=== PATIENT | female | born 1975 | race Caucasian/White ===

== ENCOUNTER 2018-09-19 11:43 | Outpatient (CLI) | payer BC ==
[~2018-09-19] VITALS: Ht 167.6 cm; Wt 57.2 kg
[2018-09-19] MEDS ORDERED: ARIP10TA10 PO (12:38)
== END 2018-09-19 12:31 | disposition home or self-care (01) ==
LOC: PREOP 11:43
PROVIDERS: ATTEND Surgery
DX: Z01.818 Encounter for other preprocedural examination (principal)

== ENCOUNTER 2018-09-22 09:57 | Day surgery (SDC) | payer BC, OTHER ==
[~2018-09-22] VITALS: Ht 167.6 cm; Wt 57.2 kg
[~2018-09-22 09:57] MED LIST: ARIP10TA10 PO
[2018-09-22] MEDS ORDERED: LACTATED RINGERS 1,000 ML IV PRN (10:11)
--- OUTSIDE RECORDS SUMMARY | 2018-09-22 10:13 | XMS REPORT | Clinical Summary ---
Author Author [facility] Organization [facility] Address Unknown Phone Unavailable Care Team Providers Care Anesthesiology Physician Assistant Name Role Phone PCP Unavailable Allergies Not on File Current Medications Not on file Active Problems Not on file Social History Tobacco Use Types Packs/Day Years Used Date Never Assessed Sex Assigned at Date Recorded Not on file Last Filed Vital Signs Not on file Plan of Treatment Not on file Results Not on filefrom Last 3 Months
--- OUTSIDE RECORDS SUMMARY | 2018-09-22 10:14 | XMS REPORT | CCD ---
Author Author [facility] Organization [facility] Address [address] [place] [address] Phone Care Team Providers Care Senior Staff Specialized Employment Name Role Phone PP Unavailable CCM Unavailable Summary Purpose Interface Exchange Insurance Providers Payer name Policy type / Coverage type Covered democrat ID Effective Begin Date Effective End Date Blue Cross Blue [facility] Blue Cross/Blue Shield [id number] 2017 Unknown Family history Mother Diagnosis Age At Onset Hypertension Unknown Father Diagnosis Age At Onset Hypertension Unknown Social History Social History Element Codes Description Effective Dates Marital status Unknown Jeff 09/01/2015 Number of children Unknown 0 09/01/[address]: 728790188 Never smoker 09/01/[address]: 523608434 Never drinks alcohol 09/01/2015 Allergies, Adverse Reactions, Alerts Substance Reaction Codes Entered Date Inactivated Date Status * NO KNOWN DRUG ALLERGIES Unknown 09/01/2015 No Inactive Date Active Past Medical History Illness Codes Condition Status Onset Date Resolved Date Melena ICD-9: 578.1 ICD-10: K92.1 Active 09/11/2018 Unknown Other hemorrhoids ICD- 9: 455.2 ICD-10: K64.8 Active 09/11/2018 Unknown Secondary oligomenorrhea ICD-9: 626.1 ICD-10: N91.4 Active 06/25/2018 Unknown Other insomnia ICD-9: 327.09 ICD-10: G47.09 Active 03/22/2016 Unknown Abnormal weight loss ICD-9: 783.21 ICD-10: R63.4 Active 03/10/2018 Unknown Left lower quadrant pain ICD-9: 789.04 ICD-10: R10.32 Active 07/18/2016 Unknown 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 Active 07/18/2016 Unknown Encounter for general adult medical examination without abnormal findings ICD-9: V70.0 ICD-10: Z00.00 Active 08/31/2015 Unknown Problems Condition Codes Effective Dates Condition Status Melena ICD-9: 578.1 ICD-10: K92.1 09/11/2018 Active Other hemorrhoids ICD- 9: 455.2 ICD-10: K64.8 09/11/2018 Active Secondary oligomenorrhea ICD-9: 626.1 ICD-10: N91.4 06/25/2018 Active Other insomnia ICD-9: 327.09 ICD-10: G47.09 03/22/2016 Active Abnormal weight loss ICD-9: 783.21 ICD-10: R63.4 03/10/2018 Active Left lower quadrant pain ICD-9: 789.04 ICD-10: R10.32 07/18/2016 Active 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 07/18/2016 Active Encounter for general adult medical examination without abnormal findings ICD-9: V70.0 ICD-10: Z00.00 08/31/2015 Active Medications Medication Codes Instructions Start Date Stop Date Status Fill Instructions Anusol-HC 25 mg rectal suppository RxNorm: 3218280 1 Suppository RTL 09/11/2018 No Stop Date Active BID x 3 days, then daily x 3 days then as needed Restoril 15 mg capsule RxNorm: 756156 2 Capsule(s) PO QHS 04/18 No Stop Date Active Restoril 15 mg capsule RxNorm: 229081 1 Capsule(s) PO QHS 04/1704/17/2018 Inactive Xanax 1 mg tablet RxNorm: 420580 1 Tablet(s) PO QHS as needed insomnia 04/09/2018 04/16/2018 Inactive Remeron 30 mg tablet RxNorm: 463620 1 Tablet(s) PO QHS 201704/16/2018 Inactive Remeron 15 mg tablet RxNorm: 233493 1 Tablet(s) PO QHS 201703/31/2018 Inactive Anusol-HC 2.5 % topical cream with perineal applicator RxNorm: 5905142 1 Application TOP BID x3 days, then daily x2 days, then as needed 03/18/2018 No Stop Date Active Xanax 1 mg tablet RxNorm: 920007 1 Tablet(s) PO QHS as needed insomnia 03/10/2018 04/08/2018 Inactive alprazolam 0.5 mg tablet RxNorm: 818002 1 Tablet(s) PO QHS as needed insomnia 08/29/2017 02/26/2018 Inactive alprazolam 0.5 mg tablet RxNorm: 171660 1 Tablet(s) PO QHS as needed insomnia 12/07/2016 02/03/2017 Inactive metronidazole 500 mg tablet RxNorm: 639709 1 Tablet(s) PO TID 07/19/2016 07/23/2016 Inactive alprazolam 0.5 mg tablet RxNorm: 492222 1 Tablet(s) PO QHS as needed insomnia 04/23/2016 05/22/2016 Inactive Fish Oil 360 mg-1,200 mg capsule RxNorm: 870736 1 Capsule(s) PO BID No Start Date Active Abilify 10 mg tablet RxNorm: 379146 1 Tablet(s) PO daily No Start Date Active Anusol-HC 2.5 % topical cream with perineal applicator RxNorm: 3172108 1 Application TOP BID x3 days, then daily x2 days, then as needed No Start Date 03/17/2018 Inactive Medication Administered No Medication Administered data Immunizations Vaccine Codes Date Status Influenza CVX: 141 08/21/2018 completed Influenza CVX: 141 08/15/2017 completed Assessments Condition Codes Effective Dates Melena ICD-10: K92.1 ICD-9: 578.1 09/11/2018 Other hemorrhoids ICD-10: K64.8 ICD-9: 455.2 09/11/2018 Secondary oligomenorrhea ICD-10: N91.4 ICD-9: 626.1 06/25/2018 Other insomnia ICD-10: G47.09 ICD-9: 327.09 04/17/2018 Abnormal weight loss ICD-10: R63.4 ICD-9: 783.21 03/24/2018 Toxic gastroenteritis and colitis ICD-10: K52.1 ICD-9: 558.2 07/19/2016 Left lower quadrant pain ICD-10: R10.32 ICD-9: 789.04 07/19/2016 Encounter for general adult medical examination without abnormal findings ICD-10: Z00.00 ICD-9: V70.0 09/01/2015 Reason For Visit Reason For Visit Effective Dates Notes hemorrhoids 09/11/2018 menstrual irregularity 06/25/2018 insomnia 04/17/2018 insomnia 03/24/2018 insomnia 03/10/2018 medication follow up 08/29/2017 diarrhea 07/19/2016 insomnia 03/23/2016 Results Observation Observation Code Item Item Code Result Date Cbc With Differential Ord2 WBC 10.43 K/ul 09/12/2018 Cbc With Differential Ord2 RBC 4.73 M/ul 09/12/2018 Cbc With Differential Ord2 HGB 14.3 g/dl 09/12/2018 Cbc With Differential Ord2 HCT 42.6 % 09/12/2018 Cbc With Differential Ord2 Neut% 67.8 % 09/12/2018 Cbc With Differential Ord2 MCV 90.1 fl 09/12/2018 Cbc With Differential Ord2 Lymph% 25.7 % 09/12/2018 Cbc With Differential Ord2 MCH 30.2 pg 09/12/2018 Cbc With Differential Ord2 [place]% 4.7 % 09/12/2018 Cbc With Differential Ord2 MCHC 33.6 pg 09/12/2018 Cbc With Differential Ord2 Eos% 1.2 % 09/12/2018 Cbc With Differential Ord2 Baso% 0.6 % 09/12/2018 Cbc With Differential Ord2 PLT 291 K/ul 09/12/2018 Cbc With Differential Ord2 Neut ABS# 7.08 K/ul 09/12/2018 Cbc With Differential Ord2 RDW 12.7 % 09/12/2018 Cbc With Differential Ord2 Lymph ABS# 2.68 K/ul 09/12/2018 Cbc With Differential Ord2 [place] ABS# 0.5 K/ul 09/12/2018 Cbc With Differential Ord2 Eos ABS# 0.1 K/ul 09/12/2018 Cbc With Differential Ord2 Baso ABS# 0.1 K/ul 09/12/2018 Estrogens Total 418800 ESTROGENS, TOTAL 215 pg/mL 06/30/2018 Tsh Ord6 TSH (3rd IS) 2.49 uIU/mL 06/25/2018 Lh Ord19 LH 10.72 mIU/mL 06/25/2018 Comp Metabolic Ihu418 NA 139 mEq/L 06/25/2018 Comp Metabolic Dbr897 K 4.3 mEq/L 06/25/2018 Comp Metabolic Gkt157 CL 105 mEq/L 06/25/2018 Comp Metabolic Bgh204 CO2 27.0 mEq/L 06/25/2018 Comp Metabolic Vug289 ANION GAP 11 06/25/2018 Comp Metabolic Eha931 GLUCOSE 88 mg/dL 06/25/2018 Comp Metabolic Alr259 Creat 0.7 mg/dL 06/25/2018 Comp Metabolic Ytm546 eGFR 105 ml/min/1.73m2 06/25/2018 Comp Metabolic Zcl848 BUN 14 mg/dL 06/25/2018 Comp Metabolic Eip456 B/C Ratio 21.5 Ratio 06/25/2018 Comp Metabolic Txl611 CALCIUM 9.5 mg/dL 06/25/2018 Comp Metabolic Yuw288 ALK PHOS 57 U/L 06/25/2018 Comp Metabolic Unn146 AST(SGOT) 13 U/L 06/25/2018 Comp Metabolic Ocz339 ALT(SGPT) 15 U/L 06/25/2018 Comp Metabolic Mso719 BILI T 0.4 mg/dL 06/25/2018 Comp Metabolic Ykl876 ALBUMIN 4.6 g/dL 06/25/2018 Comp Metabolic Dqu394 TPRO 7.4 g/dL 06/25/2018 Comp Metabolic Uzl415 GLOB 2.9 g/dL 06/25/2018 Comp Metabolic Hde291 A/G Ratio 1.6 Ratio 06/25/2018 Comp Metabolic Kll942 Osmo 277 mOsmo 06/25/2018 Cbc With Differential Ord2 WBC 11.75 K/ul 06/25/2018 Cbc With Differential Ord2 RBC 4.58 M/ul 06/25/2018 Cbc With Differential Ord2 HGB 13.7 g/dl 06/25/2018 Cbc With Differential Ord2 Neut% 73.3 % 06/25/2018 Cbc With Differential Ord2 HCT 41.3 % 06/25/2018 Cbc With Differential Ord2 MCV 90.2 fl 06/25/2018 Cbc With Differential Ord2 Lymph% 20.3 % 06/25/2018 Cbc With Differential Ord2 MCH 29.9 pg 06/25/2018 Cbc With Differential Ord2 [place]% 4.9 % 06/25/2018 Cbc With Differential Ord2 MCHC 33.2 pg 06/25/2018 Cbc With Differential Ord2 Eos% 1.1 % 06/25/2018 Cbc With Differential Ord2 PLT 320 K/ul 06/25/2018 Cbc With Differential Ord2 Baso% 0.4 % 06/25/2018 Cbc With Differential Ord2 RDW 13.0 % 06/25/2018 Cbc With Differential Ord2 Neut ABS# 8.61 K/ul 06/25/2018 Cbc With Differential Ord2 Lymph ABS# 2.39 K/ul 06/25/2018 Cbc With Differential Ord2 [place] ABS# 0.6 K/ul 06/25/2018 Cbc With Differential Ord2 Eos ABS# 0.1 K/ul 06/25/2018 Cbc With Differential Ord2 Baso ABS# 0.1 K/ul 06/25/2018 Fsh Ord18 FSH 6.30 mlU/ml 06/25/2018 Progesterone Pna710 Prog 6.73 ng/mL 06/25/2018 Tsh Ord6 hTSH II 2.04 uIU/mL 09/02/2015 Lipid Ord30 CHOL 209 mg/dL 09/02/2015 Lipid Ord30 HDL 37.0 mg/dl 09/02/2015 Lipid Ord30 TRIG 278 mg/dL 09/02/2015 Lipid Ord30 LDL 116 mg/dL 09/02/2015 Lipid Ord30 C/HDL 5.6 Ratio 09/02/2015 Comp Metabolic Ech638 NA 137 mEq/L 09/02/2015 Comp Metabolic Ymr550 K 3.8 mEq/L 09/02/2015 Comp Metabolic Bcm797 CL 103 mEq/L 09/02/2015 Comp Metabolic Yqy716 CO2 27.0 mEq/L 09/02/2015 Comp Metabolic Gts051 ANION GAP 11 09/02/2015 Comp Metabolic Tld388 GLUCOSE 97 mg/dL 09/02/2015 Comp Metabolic Ntc019 Creat 0.8 mg/dL 09/02/2015 Comp Metabolic Iqr962 eGFR 90 ml/min/1.73m2 09/02/2015 Comp Metabolic Xrm990 BUN 13 mg/dL 09/02/2015 Comp Metabolic Jkc307 B/C Ratio 17.3 Ratio 09/02/2015 Comp Metabolic Lcp829 CALCIUM 9.7 mg/dL 09/02/2015 Comp Metabolic Mhp745 ALK PHOS 69 U/L 09/02/2015 Comp Metabolic Bhs572 AST(SGOT) 19 U/L 09/02/2015 Comp Metabolic Srb087 ALT(SGPT) 34 U/L 09/02/2015 Comp Metabolic Cql276 BILI T 0.8 mg/dL 09/02/2015 Comp Metabolic Gob894 ALBUMIN 4.6 g/dL 09/02/2015 Comp Metabolic Mha247 TPRO 7.4 g/dL 09/02/2015 Comp Metabolic Quv251 GLOB 2.8 g/dL 09/02/2015 Comp Metabolic Agg586 A/G Ratio 1.7 Ratio 09/02/2015 Comp Metabolic Mvy999 Osmo 274 mOsmo 09/02/2015 %Hba1C Zhw092 % HbA1c 27755-7 5.3 % 09/02/2015 %Hba1C Svg901 Gluc Ave 105 mg/dL 09/02/2015 Cbc With Differential Ord2 WBC 9.1 K/uL 09/02/2015 Cbc With Differential Ord2 LYM 2.5 K/uL 09/02/2015 Cbc With Differential Ord2 LYM% 27.7 % 09/02/2015 Cbc With Differential Ord2 NEUT/GRAN 6.2 K/uL 09/02/2015 Cbc With Differential Ord2 NEUT/GRAN % 68.0 % 09/02/2015 Cbc With Differential Ord2 MID 0.4 K/uL 09/02/2015 Cbc With Differential Ord2 MID% 4.3 % 09/02/2015 Cbc With Differential Ord2 RBC 4.69 M/uL 09/02/2015 Cbc With Differential Ord2 HGB 13.8 g/dL 09/02/2015 Cbc With Differential Ord2 HCT 43.2 % 09/02/2015 Cbc With Differential Ord2 MCV 92 fL 09/02/2015 Cbc With Differential Ord2 MCH 29 pg 09/02/2015 Cbc With Differential Ord2 MCHC 32 g/dL 09/02/2015 Cbc With Differential Ord2 PLT 321 K/uL 09/02/2015 Cbc With Differential Ord2 RDW 13.5 % 09/02/2015 Review of Systems System Result Effective Dates Constitutional No recent illness 2017 Constitutional No chills 09/11/2018 Constitutional No diaphoresis 09/11/2018 Constitutional No fever 09/11/2018 Eyes No eye erythema 09/11/2018 Ears/Nose/Throat/Neck No nasal discharge 09/11/2018 Cardiovascular No chest pain/pressure 11/2017 Respiratory No cough 09/11/2018 Gastrointestinal No abdominal pain 2017 Gastrointestinal constipation 09/11/2018 Gastrointestinal No diarrhea 09/11/2018 Gastrointestinal No vomiting 09/11/2018 Gastrointestinal No nausea 09/11/2018 Gastrointestinal No melena 09/11/2018 Gastrointestinal hematochezia 09/11/2018 Genitourinary/Nephrology No dysuria 09/11 Dermatologic No rash 09/11/2018 Neurologic No alteration of consciousness 09/11/2018 Neurologic No mental status change 2017 Constitutional No recent illness 2017 Constitutional fatigue 04/17/2018 Constitutional insomnia 04/17/2018 Constitutional malaise 04/17/2018 Cardiovascular No chest pain/pressure 05/2018 Respiratory No cough 04/17/2018 Respiratory No chest tightness 2017 Gastrointestinal No abdominal pain 2017 Psychiatric No anxiety 04/17/2018 Psychiatric No depression 04/17/2018 Constitutional No recent illness 2017 Constitutional No chills 03/24/2018 Constitutional No diaphoresis 03/24/2018 Constitutional No fever 03/24/2018 Constitutional insomnia 03/24/2018 Constitutional No malaise 03/24/2018 Constitutional weight loss 03/24/2018 Eyes No eye erythema 03/24/2018 Eyes No vision change 03/24/2018 Ears/Nose/Throat/Neck No nasal allergies 03/24/2018 Ears/Nose/Throat/Neck No nasal discharge 03/24/2018 Ears/Nose/Throat/Neck No sinus congestion 03/24/2018 Cardiovascular No chest pain/pressure Cardiovascular No dyspnea 03/24/2018 Respiratory No chest congestion 2017 Respiratory No cough 03/24/2018 Respiratory No dyspnea 03/24/2018 Gastrointestinal No constipation 2017 Gastrointestinal No diarrhea 03/24/2018 Gastrointestinal No nausea 03/24/2018 Gastrointestinal No vomiting 03/24/2018 Genitourinary/Nephrology No dysuria 03/24 Musculoskeletal No joint complaint 2017 Dermatologic No rash 03/24/2018 Neurologic No alteration of consciousness 03/24/2018 Neurologic No mental status change 2017 Constitutional No recent illness 2017 Constitutional No chills 03/10/2018 Constitutional No diaphoresis 03/10/2018 Constitutional No fever 03/10/2018 Constitutional insomnia 03/10/2018 Constitutional No malaise 03/10/2018 Eyes No eye erythema 03/10/2018 Eyes No vision change 03/10/2018 Ears/Nose/Throat/Neck No nasal allergies 03/10/2018 Ears/Nose/Throat/Neck No nasal discharge 03/10/2018 Ears/Nose/Throat/Neck No sinus congestion 03/10/2018 Cardiovascular No chest pain/pressure Cardiovascular No dyspnea 03/10/2018 Respiratory No chest congestion 2017 Respiratory No cough 03/10/2018 Respiratory No dyspnea 03/10/2018 Gastrointestinal No constipation 2017 Gastrointestinal No diarrhea 03/10/2018 Gastrointestinal No nausea 03/10/2018 Gastrointestinal No vomiting 03/10/2018 Genitourinary/Nephrology No dysuria 03/10 Musculoskeletal No joint complaint 2017 Dermatologic No rash 03/10/2018 Neurologic No alteration of consciousness 03/10/2018 Neurologic No mental status change 2017 Constitutional weight loss 03/10/2018 Constitutional No recent illness 2016 Constitutional No chills 08/29/2017 Constitutional No fever 08/29/2017 Constitutional insomnia 08/29/2017 Constitutional No malaise 08/29/2017 Eyes No eye erythema 08/29/2017 Eyes No vision change 08/29/2017 Ears/Nose/Throat/Neck No nasal allergies 08/29/2017 Ears/Nose/Throat/Neck No nasal discharge 08/29/2017 Ears/Nose/Throat/Neck No sinus congestion 08/29/2017 Cardiovascular No chest pain/pressure Cardiovascular No dyspnea 08/29/2017 Respiratory No chest congestion 2016 Respiratory No cough 08/29/2017 Respiratory No dyspnea 08/29/2017 Gastrointestinal No constipation 2016 Gastrointestinal No diarrhea 08/29/2017 Gastrointestinal No nausea 08/29/2017 Gastrointestinal No vomiting 08/29/2017 Genitourinary/Nephrology No dysuria 08/29 Musculoskeletal No joint complaint 2016 Dermatologic No rash 08/29/2017 Neurologic No alteration of consciousness 08/29/2017 Constitutional No diaphoresis 08/29/2017 Neurologic No mental status change 2016 Constitutional recent illness 07/19/2016 Constitutional No chills 07/19/2016 Constitutional fatigue 07/19/2016 Constitutional No fever 07/19/2016 Constitutional No insomnia 07/19/2016 Constitutional No malaise 07/19/2016 Eyes No blindness 07/19/2016 Eyes No vision change 07/19/2016 Cardiovascular No chest pain/pressure 06/2016 Cardiovascular No dyspnea 07/19/2016 Cardiovascular No edema 07/19/2016 Cardiovascular No exercise intolerance Cardiovascular No fatigue 07/19/2016 Cardiovascular No near-syncope/dizziness 07/19/2016 Respiratory No chest tightness 2015 Respiratory No cough 07/19/2016 Respiratory No dyspnea 07/19/2016 Respiratory No pedal edema 07/19/2016 Gastrointestinal No abdominal pain 2015 Gastrointestinal diarrhea 07/19/2016 Gastrointestinal No gastroesophageal reflux 07/19/2016 Gastrointestinal No nausea 07/19/2016 Gastrointestinal No vomiting 07/19/2016 Genitourinary/Nephrology No dysuria 07/19 Genitourinary/Nephrology No nocturia 06/2016 Genitourinary/Nephrology No urinary incontinence 07/19/2016 Dermatologic No rash 07/19/2016 Dermatologic No sores 07/19/2016 Dermatologic No scar 07/19/2016 Psychiatric No anxiety 07/19/2016 Psychiatric No depression 07/19/2016 Constitutional No recent illness 2015 Constitutional No chills 03/23/2016 Constitutional No fatigue 03/23/2016 Constitutional No fever 03/23/2016 Constitutional No insomnia 03/23/2016 Constitutional No malaise 03/23/2016 Eyes No eye erythema 03/23/2016 Eyes No vision change 03/23/2016 Ears/Nose/Throat/Neck No nasal allergies 03/23/2016 Ears/Nose/Throat/Neck No sinus congestion 03/23/2016 Cardiovascular No chest pain/pressure Cardiovascular No dyspnea 03/23/2016 Cardiovascular No edema 03/23/2016 Respiratory No cough 03/23/2016 Respiratory No dyspnea 03/23/2016 Gastrointestinal No constipation 2015 Gastrointestinal No diarrhea 03/23/2016 Gastrointestinal No nausea 03/23/2016 Gastrointestinal No vomiting 03/23/2016 Genitourinary/Nephrology No dysuria 03/23 Dermatologic No rash 03/23/2016 Dermatologic No sores 03/23/2016 Dermatologic No scar 03/23/2016 Neurologic No neck pain 03/23/2016 Neurologic No syncope 03/23/2016 Psychiatric No anxiety 03/23/2016 Psychiatric No depression 03/23/2016 Ears/Nose/Throat/Neck No nasal discharge 03/23/2016 Respiratory No chest congestion 2015 Musculoskeletal No joint complaint 2015 Neurologic No alteration of consciousness 03/23/2016 Constitutional No recent illness 2014 Constitutional No chills 09/01/2015 Constitutional No fatigue 09/01/2015 Constitutional No fever 09/01/2015 Constitutional No insomnia 09/01/2015 Constitutional No malaise 09/01/2015 Eyes No blindness 09/01/2015 Eyes No vision change 09/01/2015 Ears/Nose/Throat/Neck No dental pain Ears/Nose/Throat/Neck No dizziness 2014 Ears/Nose/Throat/Neck No dysphagia 2014 Ears/Nose/Throat/Neck No headache 2014 Ears/Nose/Throat/Neck No hearing loss Ears/Nose/Throat/Neck No nasal allergies 09/01/2015 Ears/Nose/Throat/Neck No sore throat Ears/Nose/Throat/Neck No postnasal drip 09/01/2015 Ears/Nose/Throat/Neck No sinus congestion 09/01/2015 Cardiovascular No chest pain/pressure Cardiovascular No dyspnea 09/01/2015 Cardiovascular No edema 09/01/2015 Cardiovascular No exercise intolerance Cardiovascular No fatigue 09/01/2015 Cardiovascular No near-syncope/dizziness 09/01/2015 Respiratory No chest tightness 2014 Respiratory No cough 09/01/2015 Respiratory No dyspnea 09/01/2015 Respiratory No pedal edema 09/01/2015 Gastrointestinal No abdominal pain 2014 Gastrointestinal No constipation 2014 Gastrointestinal No diarrhea 09/01/2015 Gastrointestinal No gastroesophageal reflux 09/01/2015 Gastrointestinal No nausea 09/01/2015 Gastrointestinal No vomiting 09/01/2015 Genitourinary/Nephrology No dysuria 09/01 Genitourinary/Nephrology No nocturia Genitourinary/Nephrology No urinary incontinence 09/01/2015 Musculoskeletal No stiffness 09/01/2015 Musculoskeletal No swelling 09/01/2015 Musculoskeletal No muscle weakness 2014 Musculoskeletal No myalgias 09/01/2015 Dermatologic No rash 09/01/2015 Dermatologic No sores 09/01/2015 Dermatologic No scar 09/01/2015 Neurologic No dizziness 09/01/2015 Neurologic No headache 09/01/2015 Neurologic No neck pain 09/01/2015 Neurologic No syncope 09/01/2015 Psychiatric No anxiety 09/01/2015 Psychiatric No depression 09/01/2015 Physical Exam Exam Name System Name Item Name Status Result Effective Dates Notes Full Exam - General 1994 Constitutional general appearance Overall: well developed 09/11/2018 None Full Exam - General 1994 Constitutional general appearance Overall: in no acute distress 09/11/2018 None Full Exam - General 1994 Constitutional general appearance Overall: well nourished 09/11/2018 None Full Exam - General 1994 Eyes conjunctiva /eyelids Overall: conjunctiva clear 09/11/2018 None Full Exam - General 1994 Eyes conjunctiva /eyelids Overall: cornea clear 09/11/2018 None Full Exam - General 1994 Eyes conjunctiva /eyelids Overall: eyelids normal 09/11/2018 None Full Exam - General 1994 Ears/Nose/Throat lips/teeth/gingiva Overall: benign lips 09/11/2018 None Full Exam - General 1994 Ears/Nose/Throat oral cavity/pharynx/larynx Overall: oral mucosa clear 09/11/2018 None Full Exam - General 1994 Respiratory auscultation Overall: breath sounds clear bilaterally 09/11/2018 None Full Exam - General 1994 Respiratory respiratory effort/rhythm Overall: normal rate 09/11/2018 None Full Exam - General 1994 Respiratory respiratory effort/rhythm Overall: no retractions 09/11/2018 None Full Exam - General 1994 Cardiovascular auscultation of heart Overall: normal heart sounds 09/11/2018 None Full Exam - General 1994 Cardiovascular auscultation of heart Overall: regular rate 09/11/2018 None Full Exam - General 1994 Abdomen abdominal exam Overall: normal bowel sounds 09/11/2018 None Full Exam - General 1994 Abdomen abdominal exam Overall: no tenderness 09/11/2018 None Full Exam - General 1994 Musculoskeletal head and neck Overall: head atraumatic 09/11/2018 None Full Exam - General 1994 Musculoskeletal gait and station Overall: normal station 09/11/2018 None Full Exam - General 1994 Musculoskeletal gait and station Overall: normal gait 09/11/2018 None Full Exam - General 1994 Abdomen rectal exam Inspection: hemorrhoid 09/11/2018 None Full Exam - General 1994 Neurologic cranial nerves Overall: crainial nerves 2 - 12 grossly intact 09/11/2018 None Full Exam - General 1994 Psychiatric orientation/consciousness Overall: oriented to person, place and time 09/11/2018 None Full Exam - General 1994 Psychiatric mood and affect Overall: normal mood and affect 09/11/2018 None Full Exam - General 1994 Psychiatric appearance Overall: well-groomed, good eye contact 09/11/2018 None Full Exam - General 1994 Constitutional general appearance Overall: well nourished 04/17/2018 None Full Exam - General 1994 Constitutional general appearance Overall: well developed 04/17/2018 None Full Exam - General 1994 Constitutional general appearance Overall: in no acute distress 04/17/2018 None Full Exam - General 1994 Psychiatric orientation/consciousness Overall: oriented to person, place and time 04/17/2018 None Full Exam - General 1994 Psychiatric mood and affect Mood: happy 04/17/2018 None Full Exam - General 1994 Psychiatric mood and affect Overall: normal mood and affect 04/17/2018 None Full Exam - General 1994 Cardiovascular auscultation of heart Overall: regular rate 04/17/2018 None Full Exam - General 1994 Cardiovascular auscultation of heart Overall: normal heart sounds 04/17/2018 None Full Exam - General 1994 Cardiovascular auscultation of heart Overall: no murmurs 04/17/2018 None Full Exam - General 1994 Respiratory auscultation Overall: breath sounds clear bilaterally 04/17/2018 None Full Exam - General 1994 Constitutional general appearance Overall: well developed 03/24/2018 None Full Exam - General 1994 Constitutional general appearance Overall: in no acute distress 03/24/2018 None Full Exam - General 1994 Constitutional general appearance Overall: well nourished 03/24/2018 None Full Exam - General 1994 Constitutional general appearance Hygiene/Attention to Grooming: good hygiene 03/24/2018 None Full Exam - General 1994 Eyes conjunctiva /eyelids Overall: eyelids normal 03/24/2018 None Full Exam - General 1994 Eyes pupils and irises Overall: pupils equal, round, reactive to light and accomodation 03/24/2018 None Full Exam - General 1994 Ears/Nose/Throat lips/teeth/gingiva Overall: benign lips 03/24/2018 None Full Exam - General 1994 Ears/Nose/Throat oral cavity/pharynx/larynx Overall: oral mucosa clear 03/24/2018 None Full Exam - General 1994 Respiratory auscultation Overall: breath sounds clear bilaterally 03/24/2018 None Full Exam - General 1994 Respiratory respiratory effort/rhythm Overall: no retractions 03/24/2018 None Full Exam - General 1994 Respiratory respiratory effort/rhythm Overall: normal rate 03/24/2018 None Full Exam - General 1994 Cardiovascular extremities Overall: no clubbing 03/24/2018 None Full Exam - General 1994 Cardiovascular auscultation of heart Overall: regular rate 03/24/2018 None Full Exam - General 1994 Cardiovascular auscultation of heart Overall: normal heart sounds 03/24/2018 None Full Exam - General 1994 Musculoskeletal spine, ribs and pelvis Overall: good posture 03/24/2018 None Full Exam - General 1994 Musculoskeletal gait and station Overall: normal gait 03/24/2018 None Full Exam - General 1994 Musculoskeletal gait and station Overall: normal station 03/24/2018 None Full Exam - General 1994 Musculoskeletal head and neck Overall: head atraumatic 03/24/2018 None Full Exam - General 1994 Neurologic gait Overall: no ataxia, no unsteadiness 03/24/2018 None Full Exam - General 1994 Neurologic cranial nerves Overall: crainial nerves 2 - 12 grossly intact 03/24/2018 None Full Exam - General 1994 Psychiatric orientation/consciousness Overall: oriented to person, place and time 03/24/2018 None Full Exam - General 1994 Psychiatric mood and affect Overall: normal mood and affect 03/24/2018 None Full Exam - General 1994 Psychiatric mood and affect Mood: flat 03/24/2018 None Full Exam - General 1994 Psychiatric appearance Overall: well-groomed, good eye contact 03/24/2018 None Full Exam - General 1994 Constitutional general appearance Overall: well developed 03/10/2018 None Full Exam - General 1994 Constitutional general appearance Overall: in no acute distress 03/10/2018 None Full Exam - General 1994 Constitutional general appearance Overall: well nourished 03/10/2018 None Full Exam - General 1994 Constitutional general appearance Hygiene/Attention to Grooming: good hygiene 03/10/2018 None Full Exam - General 1994 Eyes conjunctiva /eyelids Overall: conjunctiva clear 03/10/2018 None Full Exam - General 1994 Eyes conjunctiva /eyelids Overall: eyelids normal 03/10/2018 None Full Exam - General 1994 Eyes pupils and irises Overall: pupils equal, round, reactive to light and accomodation 03/10/2018 None Full Exam - General 1994 Ears/Nose/Throat lips/teeth/gingiva Overall: benign lips 03/10/2018 None Full Exam - General 1994 Ears/Nose/Throat oral cavity/pharynx/larynx Overall: oral mucosa clear 03/10/2018 None Full Exam - General 1994 Respiratory auscultation Overall: breath sounds clear bilaterally 03/10/2018 None Full Exam - General 1994 Respiratory respiratory effort/rhythm Overall: no retractions 03/10/2018 None Full Exam - General 1994 Respiratory respiratory effort/rhythm Overall: normal rate 03/10/2018 None Full Exam - General 1994 Cardiovascular extremities Overall: no clubbing 03/10/2018 None Full Exam - General 1994 Cardiovascular auscultation of heart Overall: regular rate 03/10/2018 None Full Exam - General 1994 Cardiovascular auscultation of heart Overall: normal heart sounds 03/10/2018 None Full Exam - General 1994 Musculoskeletal spine, ribs and pelvis Overall: good posture 03/10/2018 None Full Exam - General 1994 Musculoskeletal gait and station Overall: normal gait 03/10/2018 None Full Exam - General 1994 Musculoskeletal gait and station Overall: normal station 03/10/2018 None Full Exam - General 1994 Musculoskeletal head and neck Overall: head atraumatic 03/10/2018 None Full Exam - General 1994 Neurologic gait Overall: no ataxia, no unsteadiness 03/10/2018 None Full Exam - General 1994 Neurologic cranial nerves Overall: crainial nerves 2 - 12 grossly intact 03/10/2018 None Full Exam - General 1994 Psychiatric orientation/consciousness Overall: oriented to person, place and time 03/10/2018 None Full Exam - General 1994 Psychiatric mood and affect Overall: normal mood and affect 03/10/2018 None Full Exam - General 1994 Psychiatric mood and affect Mood: flat 03/10/2018 None Full Exam - General 1994 Psychiatric appearance Overall: well-groomed, good eye contact 03/10/2018 None Full Exam - General 1994 Constitutional general appearance Hygiene/Attention to Grooming: good hygiene 08/29/2017 None Full Exam - General 1994 Eyes conjunctiva /eyelids Overall: conjunctiva clear 08/29/2017 None Full Exam - General 1994 Eyes conjunctiva /eyelids Overall: eyelids normal 08/29/2017 None Full Exam - General 1994 Ears/Nose/Throat lips/teeth/gingiva Overall: benign lips 08/29/2017 None Full Exam - General 1994 Respiratory auscultation Overall: breath sounds clear bilaterally 08/29/2017 None Full Exam - General 1994 Respiratory respiratory effort/rhythm Overall: no retractions 08/29/2017 None Full Exam - General 1994 Respiratory respiratory effort/rhythm Overall: normal rate 08/29/2017 None Full Exam - General 1994 Cardiovascular extremities Overall: no clubbing 08/29/2017 None Full Exam - General 1994 Cardiovascular auscultation of heart Overall: regular rate 08/29/2017 None Full Exam - General 1994 Cardiovascular auscultation of heart Overall: normal heart sounds 08/29/2017 None Full Exam - General 1994 Musculoskeletal spine, ribs and pelvis Overall: good posture 08/29/2017 None Full Exam - General 1994 Musculoskeletal head and neck Overall: head atraumatic 08/29/2017 None Full Exam - General 1994 Neurologic cranial nerves Overall: crainial nerves 2 - 12 grossly intact 08/29/2017 None Full Exam - General 1994 Psychiatric orientation/consciousness Overall: oriented to person, place and time 08/29/2017 None Full Exam - General 1994 Psychiatric mood and affect Overall: normal mood and affect 08/29/2017 None Full Exam - General 1994 Psychiatric mood and affect Mood: flat 08/29/2017 None Full Exam - General 1994 Constitutional general appearance Overall: well developed 08/29/2017 None Full Exam - General 1994 Constitutional general appearance Overall: in no acute distress 08/29/2017 None Full Exam - General 1994 Constitutional general appearance Overall: well nourished 08/29/2017 None Full Exam - General 1994 Eyes pupils and irises Overall: pupils equal, round, reactive to light and accomodation 08/29/2017 None Full Exam - General 1994 Ears/Nose/Throat oral cavity/pharynx/larynx Overall: oral mucosa clear 08/29/2017 None Full Exam - General 1994 Ears/Nose/Throat otoscopic exam Overall: external auditory canals clear 08/29/2017 None Full Exam - General 1994 Ears/Nose/Throat otoscopic exam Overall: tympanic membranes clear 08/29/2017 None Full Exam - General 1994 Abdomen abdominal exam Overall: no tenderness 08/29/2017 None Full Exam - General 1994 Abdomen abdominal exam Overall: normal bowel sounds 08/29/2017 None Full Exam - General 1994 Musculoskeletal gait and station Overall: normal station 08/29/2017 None Full Exam - General 1994 Musculoskeletal gait and station Overall: normal gait 08/29/2017 None Full Exam - General 1994 Neurologic gait Overall: no ataxia, no unsteadiness 08/29/2017 None Full Exam - General 1994 Psychiatric appearance Overall: well-groomed, good eye contact 08/29/2017 None Full Exam - General 1994 Constitutional general appearance Development: well developed 07/19/2016 None Full Exam - General 1994 Constitutional general appearance Development: appears stated age 0907/19/2016 None Full Exam - General 1994 Constitutional general appearance Hygiene/Attention to Grooming: good hygiene 07/19/2016 None Full Exam - General 1994 Eyes pupils and irises Overall: pupils equal, round, reactive to light and accomodation 07/19/2016 None Full Exam - General 1994 Ears/Nose/Throat otoscopic exam Overall: external auditory canals clear 07/19/2016 None Full Exam - General 1994 Ears/Nose/Throat otoscopic exam Overall: tympanic membranes clear 07/19/2016 None Full Exam - General 1994 Ears/Nose/Throat lips/teeth/gingiva Overall: benign lips 07/19/2016 None Full Exam - General 1994 Ears/Nose/Throat lips/teeth/gingiva Overall: normal dentition 07/19/2016 None Full Exam - General 1994 Ears/Nose/Throat oral cavity/pharynx/larynx Overall: oral mucosa clear 07/19/2016 None Full Exam - General 1994 Ears/Nose/Throat oral cavity/pharynx/larynx Overall: oropharyngeal mucosa clear 07/19/2016 None Full Exam - General 1994 Ears/Nose/Throat oral cavity/pharynx/larynx Overall: hypopharynx benign 07/19/2016 None Full Exam - General 1994 Ears/Nose/Throat oral cavity/pharynx/larynx Overall: no masses 07/19/2016 None Full Exam - General 1994 Respiratory auscultation Overall: breath sounds clear bilaterally 07/19/2016 None Full Exam - General 1994 Respiratory respiratory effort/rhythm Overall: no retractions 07/19/2016 None Full Exam - General 1994 Respiratory respiratory effort/rhythm Overall: normal rate 07/19/2016 None Full Exam - General 1994 Cardiovascular extremities Overall: no clubbing 07/19/2016 None Full Exam - General 1994 Cardiovascular auscultation of heart Overall: regular rate 07/19/2016 None Full Exam - General 1994 Cardiovascular auscultation of heart Overall: normal heart sounds 07/19/2016 None Full Exam - General 1994 Psychiatric orientation/consciousness Overall: oriented to person, place and time 07/19/2016 None Full Exam - General 1994 Psychiatric mood and affect Overall: normal mood and affect 07/19/2016 None Full Exam - General 1994 Abdomen abdominal exam Bowel sounds: hyperactive 07/19/2016 None Full Exam - General 1994 Abdomen abdominal exam Upper quadrant: non-tender to palpation 07/19/2016 None Full Exam - General 1994 Abdomen abdominal exam Lower quadrant: tender to palpation 07/19/2016 None Full Exam - General 1994 Constitutional general appearance Development: well developed 03/23/2016 None Full Exam - General 1994 Constitutional general appearance Development: appears stated age 0503/23/2016 None Full Exam - General 1994 Constitutional general appearance Hygiene/Attention to Grooming: good hygiene 03/23/2016 None Full Exam - General 1994 Eyes conjunctiva /eyelids Overall: conjunctiva clear 03/23/2016 None Full Exam - General 1994 Eyes conjunctiva /eyelids Overall: cornea clear 03/23/2016 None Full Exam - General 1994 Eyes conjunctiva /eyelids Overall: eyelids normal 03/23/2016 None Full Exam - General 1994 Eyes pupils and irises Overall: pupils equal, round, reactive to light and accomodation 03/23/2016 None Full Exam - General 1994 Ears/Nose/Throat lips/teeth/gingiva Overall: benign lips 03/23/2016 None Full Exam - General 1994 Ears/Nose/Throat lips/teeth/gingiva Overall: normal dentition 03/23/2016 None Full Exam - General 1994 Respiratory auscultation Overall: breath sounds clear bilaterally 03/23/2016 None Full Exam - General 1994 Respiratory respiratory effort/rhythm Overall: no retractions 03/23/2016 None Full Exam - General 1994 Respiratory respiratory effort/rhythm Overall: normal rate 03/23/2016 None Full Exam - General 1994 Cardiovascular extremities Overall: no clubbing 03/23/2016 None Full Exam - General 1994 Cardiovascular auscultation of heart Overall: regular rate 03/23/2016 None Full Exam - General 1994 Cardiovascular auscultation of heart Overall: normal heart sounds 03/23/2016 None Full Exam - General 1994 Musculoskeletal spine, ribs and pelvis Overall: good posture 03/23/2016 None Full Exam - General 1994 Musculoskeletal head and neck Overall: head atraumatic 03/23/2016 None Full Exam - General 1994 Neurologic cranial nerves Overall: crainial nerves 2 - 12 grossly intact 03/23/2016 None Full Exam - General 1994 Psychiatric orientation/consciousness Overall: oriented to person, place and time 03/23/2016 None Full Exam - General 1994 Psychiatric mood and affect Overall: normal mood and affect 03/23/2016 None Full Exam - General 1994 Integument inspection of skin Overall: no rash, lesions 03/23/2016 None Full Exam - General 1994 Psychiatric mood and affect Mood: flat 03/23/2016 None Full Exam - General 1994 Constitutional general appearance Development: well developed 09/01/2015 None Full Exam - General 1994 Constitutional general appearance Development: appears stated age 1009/01/2015 None Full Exam - General 1994 Constitutional general appearance Hygiene/Attention to Grooming: good hygiene 09/01/2015 None Full Exam - General 1994 Eyes conjunctiva /eyelids Overall: conjunctiva clear 09/01/2015 None Full Exam - General 1994 Eyes conjunctiva /eyelids Overall: cornea clear 09/01/2015 None Full Exam - General 1994 Eyes conjunctiva /eyelids Overall: eyelids normal 09/01/2015 None Full Exam - General 1994 Eyes pupils and irises Overall: pupils equal, round, reactive to light and accomodation 09/01/2015 None Full Exam - General 1994 Ears/Nose/Throat otoscopic exam Overall: external auditory canals clear 09/01/2015 None Full Exam - General 1994 Ears/Nose/Throat otoscopic exam Overall: tympanic membranes clear 09/01/2015 None Full Exam - General 1994 Ears/Nose/Throat lips/teeth/gingiva Overall: benign lips 09/01/2015 None Full Exam - General 1994 Ears/Nose/Throat lips/teeth/gingiva Overall: normal dentition 09/01/2015 None Full Exam - General 1994 Ears/Nose/Throat oral cavity/pharynx/larynx Overall: oral mucosa clear 09/01/2015 None Full Exam - General 1994 Ears/Nose/Throat oral cavity/pharynx/larynx Overall: oropharyngeal mucosa clear 09/01/2015 None Full Exam - General 1994 Ears/Nose/Throat oral cavity/pharynx/larynx Overall: hypopharynx benign 09/01/2015 None Full Exam - General 1994 Ears/Nose/Throat oral cavity/pharynx/larynx Overall: no masses 09/01/2015 None Full Exam - General 1994 Respiratory auscultation Overall: breath sounds clear bilaterally 09/01/2015 None Full Exam - General 1994 Respiratory respiratory effort/rhythm Overall: no retractions 09/01/2015 None Full Exam - General 1994 Respiratory respiratory effort/rhythm Overall: normal rate 09/01/2015 None Full Exam - General 1994 Cardiovascular extremities Overall: no clubbing 09/01/2015 None Full Exam - General 1994 Cardiovascular auscultation of heart Overall: regular rate 09/01/2015 None Full Exam - General 1994 Cardiovascular auscultation of heart Overall: normal heart sounds 09/01/2015 None Full Exam - General 1994 Abdomen abdominal exam Overall: no tenderness 09/01/2015 None Full Exam - General 1994 Abdomen abdominal exam Overall: normal bowel sounds 09/01/2015 None Full Exam - General 1994 Lymphatic neck nodes Overall: anterior cervical chain benign 09/01/2015 None Full Exam - General 1994 Lymphatic neck nodes Overall: posterior cervical chain benign 09/01/2015 None Full Exam - General 1994 Musculoskeletal spine, ribs and pelvis Overall: spine benign 09/01/2015 None Full Exam - General 1994 Musculoskeletal spine, ribs and pelvis Overall: sacroiliac joint benign 09/01/2015 None Full Exam - General 1994 Musculoskeletal spine, ribs and pelvis Overall: good posture 09/01/2015 None Full Exam - General 1994 Musculoskeletal head and neck Overall: head atraumatic 09/01/2015 None Full Exam - General 1994 Musculoskeletal head and neck Overall: cervical spine benign 09/01/2015 None Full Exam - General 1994 Integument inspection of skin Overall: few scattered moles, no gross abnormalities 09/01/2015 None Full Exam - General 1994 Neurologic deep tendon reflexes Overall: deep tendon reflexes intact 09/01/2015 None Full Exam - General 1994 Neurologic cranial nerves Overall: crainial nerves 2 - 12 grossly intact 09/01/2015 None Full Exam - General 1994 Psychiatric orientation/consciousness Overall: oriented to person, place and time 09/01/2015 None Full Exam - General 1994 Psychiatric mood and affect Overall: normal mood and affect 09/01/2015 None Procedures No Procedures data Vital Signs Date Vital 09/11/2018 Blood Pressure 1: 138/80 Code : 8480-6 BMI: 20.2 Code : 35479-3 Heart Rate 1 : 71 bpm Height: 5'6" SpO2: 98% Weight: 125 lbs 06/25/2018 Blood Pressure 1: 122/72 Code : 8480-6 BMI: 19.9 Code : 98964-3 Heart Rate 1 : 70 bpm Height: 5'6" SpO2: 98% Weight: 123 lbs 04/17/2018 Blood Pressure 1: 126/76 Code : 8480-6 BMI: 19.4 Code : 99411-2 Heart Rate 1 : 83 bpm Height: 5'6" SpO2: 98% Weight: 120 lbs 03/24/2018 Blood Pressure 1: 132/80 Code : 8480-6 BMI: 19.0 Code : 63560-5 Heart Rate 1 : 75 bpm Height: 5'6" SpO2: 98% Weight: 118 lbs 03/10/2018 Blood Pressure 1: 120/74 Code : 8480-6 BMI: 18.9 Code : 33133-4 Heart Rate 1 : 70 bpm Height: 5'6" SpO2: 99% Weight: 117 lbs 08/29/2017 Blood Pressure 1: 130/82 Code : 8480-6 BMI: 20.0 Code : 85224-3 Heart Rate 1 : 87 bpm Height: 5'6" SpO2: 99% Weight: 124 lbs 07/19/2016 Blood Pressure 1: 132/82 Code : 8480-6 BMI: 22.9 Code : 33666-6 Heart Rate 1 : 88 bpm Height: 5'6" SpO2: 96% Weight: 142 lbs 03/23/2016 Blood Pressure 1: 110/82 Code : 8480-6 BMI: 24.4 Code : 36826-2 Heart Rate 1 : 82 bpm Height: 5'6" SpO2: 99% Weight: 151 lbs 09/01/2015 Blood Pressure 1: 126/80 Code : 8480-6 BMI: 25.8 Code : 88403-5 Heart Rate 1 : 90 bpm Height: 5'6" SpO2: 98% Weight: 160 lbs Functional Status No Functional Status data History of Present Illness Symptom Name Status Result Effective Date Notes hemorrhoids Quality bleeding 09/11/2018 None hemorrhoids Quality constant 09/11/2018 None hemorrhoids Quality worsening 09/11/2018 None hemorrhoids Quality sharp 09/11/2018 None hemorrhoids Onset and Resolution sudden in onset 09/11/2018 None hemorrhoids Onset of Symptom 1 weeks ago 09/11/2018 None hemorrhoids Frequency of Episodes daily 09/11/2018 None menstrual irregularity Quality constant 06/25/2018 None menstrual irregularity Onset and Resolution sudden in onset 06/25/2018 None menstrual irregularity Onset of Symptom 3 months ago 06/25/2018 None insomnia Quality difficulty falling asleep 04/17/2018 None insomnia Onset and Resolution ongoing 04/17/2018 None insomnia Onset of Symptom years ago 04/17/2018 None insomnia Quality chronic 04/17/2018 None insomnia Alleviating Factors medication 04/17/2018 None insomnia Quality constant 03/24/2018 None insomnia Quality difficulty falling asleep 03/24/2018 None insomnia Onset and Resolution ongoing 03/24/2018 None insomnia Onset of Symptom _ years ago 03/24/2018 None insomnia Quality constant 03/10/2018 None insomnia Quality difficulty falling asleep 03/10/2018 None insomnia Onset and Resolution ongoing 03/10/2018 None insomnia Onset of Symptom _ years ago 03/10/2018 None medication follow up Location oral intake 08/29/2017 None insomnia Quality chronic 08/29/2017 None insomnia Quality intermittent 08/29/2017 None insomnia Quality stable 08/29/2017 None insomnia Onset and Resolution ongoing 08/29/2017 None insomnia Severity mild 08/29/2017 None insomnia Pertinent Findings Denies dyspnea 08/29/2017 None insomnia Pertinent Findings Denies fever 08/29/2017 None diarrhea Quality acute 07/19/2016 None diarrhea Quality intermittent 07/19/2016 None diarrhea Quality loose 07/19/2016 None diarrhea Onset of Symptom 2 weeks ago 07/19/2016 None diarrhea Triggers no known associated factors 07/19/2016 None diarrhea Alleviating Factors antidiarrheal agent 07/19/2016 None diarrhea Pertinent Findings Denies chills 07/19/2016 None diarrhea Pertinent Findings nausea 07/19/2016 None diarrhea Pertinent Findings Denies fever 07/19/2016 None diarrhea Pertinent Findings weight loss 07/19/2016 None insomnia Quality difficulty falling asleep 03/23/2016 None insomnia Onset and Resolution ongoing 03/23/2016 None insomnia Onset of Symptom years ago 03/23/2016 None insomnia Quality intermittent 03/23/2016 None insomnia Alleviating Factors medication 03/23/2016 alprazolam Advance Directives No Advance Directive data Encounters Encounter Performer Location Codes Date EST. PATIENT, LEVEL III Diagnosis: Melena[ICD10: K92.1] Diagnosis: Other hemorrhoids[ICD10: K64.8] Hailey Dodge MD, [facility] CPT-4 : 31737 09/11/2018 [id number]) [id number] EST. PATIENT, LEVEL III Diagnosis: Secondary oligomenorrhea[ICD10: N91.4] Caridad Dodge MD, [facility] CPT-4: 05530 06/25/2018 [id number]) [id number] EST. PATIENT, LEVEL III Diagnosis: Other insomnia[ICD10: G47.09] Caridad Dodge MD, [facility] CPT- 4: 09187 04/17/2018 [id number] EST. PATIENT, LEVEL III Diagnosis: Other insomnia[ICD10: G47.09] Diagnosis: Abnormal weight loss[ICD10: R63.4] Hailey Dodge MD, [facility] CPT-4: 90837 03/24/2018 [id number] EST. PATIENT, LEVEL III Diagnosis: Other insomnia[ICD10: G47.09] Diagnosis: Abnormal weight loss[ICD10: R63.4] Hailey Dodge MD, [facility] CPT-4: 10698 03/10/2018 [id number] EST. PATIENT, LEVEL IV Diagnosis: Other insomnia[ICD10: G47.09] Hailey Dodge MD, [facility] CPT-4 : 16929 08/29/2017 [id number]) [id number] EST. PATIENT, LEVEL III Diagnosis: Left lower quadrant pain[ICD10: R10.32] Diagnosis: Toxic gastroenteritis and colitis[ICD10: K52.1] Caridad Dodge MD, [facility] CPT-4: 95864 07/19/2016 [id number] EST. PATIENT, LEVEL III Diagnosis: Other insomnia[ICD10: G47.09] Hailey Dodge MD, [facility] CPT-4 : 05815 03/23/2016 ([id number]) PREV VISIT NEW AGE 40-64 Diagnosis: Encounter for general adult medical examination without abnormal findings[ICD10: Z00.00] Caridad Dodge MD, [facility] CPT-4: 89748 09/01/2015 Plan of Care Planned Activity Notes Codes Status Date Visit Plan: Hemrrhoids - will send RX - pt is to notify clinic if symptoms do not improve and will refer to surgeon 09/11/2018 Appointment: [facility] (15 min) Moderate 09/11/2018 Patient Education: Patient Medication Summary Completed 09/11/2018 Visit Plan: Abnormal cycle - recommended that we check Estrogen, Progesterone, FSH, LH and Thyroid function. She may be going through early menopause or her thyroid may be abnormally functioning. Further investigation is pending. 06/25/2018 Appointment: Caridad Dodge WPtel: [address] [place], [place] [id number] [place] (15 min) Moderate 06/25/2018 Patient Education: Patient Medication Summary Completed 06/25/2018 Appointment: Hailey Corral [facility]Ptel[facility] [place] (30 min) Complex 05/01/2018 Visit Plan: Insomnia - Pt has been advised to increase the light in the house during the day, and start dimming the lights during the evening hours. Pt has been advised to cut out caffeine after 5pm. Daytime napping worsens night time insomnia. Restoril 15mg at hs - one pill at night - call if not improving on current medication regimen. 04/17/2018 Appointment: [facility] [phone] [facility] (15 min) Moderate 04/17/2018 Patient Education: Patient Medication Summary Completed 04/17/2018 Visit Plan: Insomnia - Pt has been advised to increase the light in the house during the day, and start dimming the lights during the evening hours. Pt has been advised to cut out caffeine after 5pm. Daytime napping worsens night time insomnia. Weight loss - improving - continue ensure 03/24/2018 Appointment: Hailey Corral [facility]el[facility] [phone] [facility] (15 min) Moderate 03/24/2018 Patient Education: Patient Medication Summary Completed 03/24/2018 Visit Plan: Insomnia - Pt has been advised to increase the light in the house during the day, and start dimming the lights during the evening hours. Pt has been advised to cut out caffeine after 5pm. Daytime napping worsens night time insomnia. Weight loss - will have pt start ensure daily - will have pt return to clinic in 2 weeks for weight check 03/10/2018 Appointment: Hailey Corral [facility]Ptel[facility] [place] (15 min) Moderate 03/10/2018 Patient Education: Patient Medication Summary Completed 03/10/2018 Visit Plan: Insomnia - Pt has been advised to increase the light in the house during the day, and start dimming the lights during the evening hours. Pt has been advised to cut out caffeine after 5pm. Daytime napping worsens night time insomnia. 08/29/2017 Appointment: [facility] Corral [facility] [phone] [id number] (30 min) Complex 08/29/2017 Patient Education: Patient Medication Summary Completed 08/29/2017 Visit Plan: Gastroenteritis - discussed need to stay away from milk products while acutely ill with diarrhea and nausea and emesis as it may worsen the symptoms. Liquids initially until the nausea improves, then recommend to advance to bland diet for 1 day, then advance as tolerated. Call if symptoms not improved. 07/19/2016 Appointment: DarRose mariey WPtel: [phone] [facility] (15 min) Moderate 07/19/2016 Patient Education: Patient Medication Summary Completed 07/19/2016 Visit Plan: Insomnia - Pt has been advised to increase the light in the house during the day, and start dimming the lights during the evening hours. Pt has been advised to cut out caffeine after 5pm. Daytime napping worsens night time insomnia. 03/23/2016 Appointment: Andie Villarreal WPtel: [phone] [phone] [place] (15 min) Moderate 03/23/2016 Patient Education: Patient Medication Summary Completed 03/23/2016 Visit Plan: Well Adult - pt was counseled about diet, exercise, and encouraged to follow a heart healthy diet and increase activity level. The patient was instructed to RTC yearly for well adult exams and PRN for acute illnesses. The pt was also instructed to have yearly labs for check of cholesterol, thyroid, chem panel, CBC, and renal functioning. 09/01/2015 Appointment: Caridad Dodge WPtel: [phone] [facility] [place] (S) New Patient 09/01/2015 Patient Education: Patient Medication Summary Completed 09/01/2015 Instructions Comment . Abnormal cycle - recommended that we check Estrogen, Progesterone, FSH, LH and Thyroid function. She may be going through early menopause or her thyroid may be abnormally functioning. Further investigation is pending. Add an Ensure shake daily - come back by the office in 2 weeks for a weight check to make sure you are not losing too much weight . Insomnia - Pt has been advised to increase the light in the house during the day, and start dimming the lights during the evening hours. Pt has been advised to cut out caffeine after 5pm. Daytime napping worsens night time insomnia. Weight loss - will have pt start ensure daily - will have pt return to clinic in 2 weeks for weight check . Hemrrhoids - will send RX - pt is to notify clinic if symptoms do not improve and will refer to surgeon . Insomnia - Pt has been advised to increase the light in the house during the day, and start dimming the lights during the evening hours. Pt has been advised to cut out caffeine after 5pm. Daytime napping worsens night time insomnia. take the flagyl (metronidazole) three times daily x 5 days. get an over the counter PROBIOTIC - like [employer] or Nefsis - take this twice daily x 2 weeks. . Gastroenteritis - discussed need to stay away from milk products while acutely ill with diarrhea and nausea and emesis as it may worsen the symptoms. Liquids initially until the nausea improves, then recommend to advance to bland diet for 1 day, then advance as tolerated. Call if symptoms not improved. . Insomnia - Pt has been advised to increase the light in the house during the day, and start dimming the lights during the evening hours. Pt has been advised to cut out caffeine after 5pm. Daytime napping worsens night time insomnia. Weight loss - improving - continue ensure . Insomnia - Pt has been advised to increase the light in the house during the day, and start dimming the lights during the evening hours. Pt has been advised to cut out caffeine after 5pm. Daytime napping worsens night time insomnia. Restoril 15mg at hs - one pill at night - call if not improving on current medication regimen. increase the light in the house during the day, and start dimming the lights during the evening hours. Pt has been advised to cut out caffeine after 5pm. Daytime napping worsens night time insomnia. . Insomnia - Pt has been advised to increase the light in the house during the day, and start dimming the lights during the evening hours. Pt has been advised to cut out caffeine after 5pm. Daytime napping worsens night time insomnia. . Well Adult - pt was counseled about diet, exercise, and encouraged to follow a heart healthy diet and increase activity level. The patient was instructed to RTC yearly for well adult exams and PRN for acute illnesses. The pt was also instructed to have yearly labs for check of cholesterol, thyroid, chem panel, CBC, and renal functioning.
[2018-09-22 10:15] VITALS: BP 122/54
[2018-09-22] MEDS ORDERED: ceFAZolin INJECTION 1,000 MG in NS (IVPB) 50 ML IV ONE (10:15)
--- OUTSIDE RECORDS SUMMARY | 2018-09-22 10:15 | XMS REPORT | CCD ---
Author Author [facility] Organization [facility] Address [address] [place] [address] Phone Care Team Providers Care Deputy Sheriff Custody Name Role Phone PP Unavailable CCM Unavailable Summary Purpose Interface Exchange Insurance Providers Payer name Policy type / Coverage type Covered democrat ID Effective Begin Date Effective End Date Blue Cross Blue [facility] Blue Cross/Blue Shield [id number] 2017 Unknown Family history Mother Diagnosis Age At Onset Hypertension Unknown Father Diagnosis Age At Onset Hypertension Unknown Social History Social History Element Codes Description Effective Dates Marital status Unknown Jeff 09/01/2015 Number of children Unknown 0 09/01/[address]: 789068027 Never smoker 09/01/[address]: 608401629 Never drinks alcohol 09/01/2015 Allergies, Adverse Reactions, [...] Instructions Anusol-HC 25 mg rectal suppository RxNorm: 5456134 1 Suppository RTL 09/11/2018 No Stop Date Active BID x 3 days, then daily x 3 days then as needed Restoril 15 mg capsule RxNorm: 468298 2 Capsule(s) PO QHS 04/18 No Stop Date Active Restoril 15 mg capsule RxNorm: 229312 1 Capsule(s) PO QHS 04/1704/17/2018 Inactive Xanax 1 mg tablet RxNorm: 325615 1 Tablet(s) PO QHS as needed insomnia 04/09/2018 04/16/2018 Inactive Remeron 30 mg tablet RxNorm: 654393 1 Tablet(s) PO QHS 201704/16/2018 Inactive Remeron 15 mg tablet RxNorm: 166460 1 Tablet(s) PO QHS 201703/31/2018 Inactive Anusol-HC 2.5 % topical cream with perineal applicator RxNorm: 1334758 1 Application TOP BID x3 days, then daily x2 days, then as needed 03/18/2018 No Stop Date Active Xanax 1 mg tablet RxNorm: 239156 1 Tablet(s) PO QHS as needed insomnia 03/10/2018 04/08/2018 Inactive alprazolam 0.5 mg tablet RxNorm: 364037 1 Tablet(s) PO QHS as needed insomnia 08/29/2017 02/26/2018 Inactive alprazolam 0.5 mg tablet RxNorm: 401793 1 Tablet(s) PO QHS as needed insomnia 12/07/2016 02/03/2017 Inactive metronidazole 500 mg tablet RxNorm: 632452 1 Tablet(s) PO TID 07/19/2016 07/23/2016 Inactive alprazolam 0.5 mg tablet RxNorm: 494779 1 Tablet(s) PO QHS as needed insomnia 04/23/2016 05/22/2016 Inactive Fish Oil 360 mg-1,200 mg capsule RxNorm: 461492 1 Capsule(s) PO BID No Start Date Active Abilify 10 mg tablet RxNorm: 841611 1 Tablet(s) PO daily No Start Date Active Anusol-HC 2.5 % topical cream with perineal applicator RxNorm: 8642328 1 Application TOP BID x3 days, then [...] 14.3 g/dl 09/12/2018 Cbc With Differential Ord2 Neut% 67.8 % 09/12/2018 Cbc With Differential Ord2 HCT 42.6 % 09/12/2018 Cbc With Differential Ord2 MCV 90.1 fl 09/12/2018 Cbc With Differential Ord2 Lymph% 25.7 % 09/12/2018 Cbc With Differential Ord2 Garvin% 4.7 % 09/12/2018 Cbc With Differential Ord2 MCH 30.2 pg 09/12/2018 Cbc With Differential Ord2 Eos% 1.2 % 09/12/2018 Cbc With Differential Ord2 MCHC 33.6 pg 09/12/2018 Cbc With Differential Ord2 Baso% 0.6 % 09/12/2018 Cbc With Differential Ord2 PLT 291 K/ul 09/12/2018 Cbc With Differential Ord2 Neut ABS# 7.08 K/ul 09/12/2018 Cbc With Differential Ord2 RDW 12.7 % 09/12/2018 Cbc With Differential Ord2 Lymph ABS# 2.68 K/ul 09/12/2018 Cbc With Differential Ord2 Garvin ABS# 0.5 K/ul 09/12/2018 Cbc With Differential Ord2 Eos ABS# 0.1 K/ul 09/12/2018 Cbc With Differential Ord2 Baso ABS# 0.1 K/ul 09/12/2018 Estrogens Total 558435 ESTROGENS, TOTAL 215 pg/mL 06/30/2018 Tsh Ord6 TSH (3rd IS) 2.49 uIU/mL 06/25/2018 Lh Ord19 LH 10.72 mIU/mL 06/25/2018 Comp Metabolic Qcn968 NA 139 mEq/L 06/25/2018 Comp Metabolic Twy344 K 4.3 mEq/L 06/25/2018 Comp Metabolic Bgj103 CL 105 mEq/L 06/25/2018 Comp Metabolic Sit209 CO2 27.0 mEq/L 06/25/2018 Comp Metabolic Mnt984 ANION GAP 11 06/25/2018 Comp Metabolic Lui643 GLUCOSE 88 mg/dL 06/25/2018 Comp Metabolic Etr474 Creat 0.7 mg/dL 06/25/2018 Comp Metabolic Cyh338 eGFR 105 ml/min/1.73m2 06/25/2018 Comp Metabolic Oex884 BUN 14 mg/dL 06/25/2018 Comp Metabolic Bdb755 B/C Ratio 21.5 Ratio 06/25/2018 Comp Metabolic Iad254 CALCIUM 9.5 mg/dL 06/25/2018 Comp Metabolic Ctq846 ALK PHOS 57 U/L 06/25/2018 Comp Metabolic Jfq759 AST(SGOT) 13 U/L 06/25/2018 Comp Metabolic Eiw849 ALT(SGPT) 15 U/L 06/25/2018 Comp Metabolic Mat965 BILI T 0.4 mg/dL 06/25/2018 Comp Metabolic Cwf629 ALBUMIN 4.6 g/dL 06/25/2018 Comp Metabolic Qsp107 TPRO 7.4 g/dL 06/25/2018 Comp Metabolic Acj107 GLOB 2.9 g/dL 06/25/2018 Comp Metabolic Mog487 A/G Ratio 1.6 Ratio 06/25/2018 Comp Metabolic Afu628 Osmo 277 mOsmo 06/25/2018 Cbc With Differential Ord2 WBC 11.75 K/ul 06/25/2018 Cbc With Differential Ord2 RBC 4.58 M/ul 06/25/2018 Cbc With Differential Ord2 HGB 13.7 g/dl 06/25/2018 Cbc With Differential Ord2 HCT 41.3 % 06/25/2018 Cbc With Differential Ord2 Neut% 73.3 % 06/25/2018 Cbc With Differential Ord2 MCV 90.2 fl 06/25/2018 Cbc With Differential Ord2 Lymph% 20.3 % 06/25/2018 Cbc With Differential Ord2 MCH 29.9 pg 06/25/2018 Cbc With Differential Ord2 Garvin% 4.9 % 06/25/2018 Cbc With Differential Ord2 Eos% 1.1 % 06/25/2018 Cbc With Differential Ord2 MCHC 33.2 pg 06/25/2018 Cbc With Differential Ord2 Baso% 0.4 % 06/25/2018 Cbc With Differential Ord2 PLT 320 K/ul 06/25/2018 Cbc With Differential Ord2 Neut ABS# 8.61 K/ul 06/25/2018 Cbc With Differential Ord2 RDW 13.0 % 06/25/2018 Cbc With Differential Ord2 Lymph ABS# 2.39 K/ul 06/25/2018 Cbc With Differential Ord2 Garvin ABS# 0.6 K/ul 06/25/2018 Cbc With Differential Ord2 Eos ABS# 0.1 K/ul 06/25/2018 Cbc With Differential Ord2 Baso ABS# 0.1 K/ul 06/25/2018 Fsh Ord18 FSH 6.30 mlU/ml 06/25/2018 Progesterone Hpn723 Prog 6.73 ng/mL 06/25/2018 Tsh Ord6 hTSH II 2.04 uIU/mL 09/02/2015 Lipid Ord30 CHOL 209 mg/dL 09/02/2015 Lipid Ord30 HDL 37.0 mg/dl 09/02/2015 Lipid Ord30 TRIG 278 mg/dL 09/02/2015 Lipid Ord30 LDL 116 mg/dL 09/02/2015 Lipid Ord30 C/HDL 5.6 Ratio 09/02/2015 Comp Metabolic Clw068 NA 137 mEq/L 09/02/2015 Comp Metabolic Zcf101 K 3.8 mEq/L 09/02/2015 Comp Metabolic Lno610 CL 103 mEq/L 09/02/2015 Comp Metabolic Lem664 CO2 27.0 mEq/L 09/02/2015 Comp Metabolic Wuh235 ANION GAP 11 09/02/2015 Comp Metabolic Bes683 GLUCOSE 97 mg/dL 09/02/2015 Comp Metabolic Por381 Creat 0.8 mg/dL 09/02/2015 Comp Metabolic Dsq622 eGFR 90 ml/min/1.73m2 09/02/2015 Comp Metabolic Rzt652 BUN 13 mg/dL 09/02/2015 Comp Metabolic Toj841 B/C Ratio 17.3 Ratio 09/02/2015 Comp Metabolic Yet409 CALCIUM 9.7 mg/dL 09/02/2015 Comp Metabolic Ztx129 ALK PHOS 69 U/L 09/02/2015 Comp Metabolic Mnm288 AST(SGOT) 19 U/L 09/02/2015 Comp Metabolic Jpo001 ALT(SGPT) 34 U/L 09/02/2015 Comp Metabolic Wun834 BILI T 0.8 mg/dL 09/02/2015 Comp Metabolic Yuz397 ALBUMIN 4.6 g/dL 09/02/2015 Comp Metabolic Rdf183 TPRO 7.4 g/dL 09/02/2015 Comp Metabolic Enp008 GLOB 2.8 g/dL 09/02/2015 Comp Metabolic Ifj366 A/G Ratio 1.7 Ratio 09/02/2015 Comp Metabolic Bff206 Osmo 274 mOsmo 09/02/2015 %Hba1C Rng384 % HbA1c 89255-0 5.3 % 09/02/2015 %Hba1C Lmd638 Gluc Ave 105 mg/dL 09/02/2015 Cbc With [...] Code : 8480-6 BMI: 20.2 Code : 55844-7 Heart Rate 1 : 71 bpm Height: 5'6" SpO2: 98% Weight: 125 lbs 06/25/2018 Blood Pressure 1: 122/72 Code : 8480-6 BMI: 19.9 Code : 60522-0 Heart Rate 1 : 70 bpm Height: 5'6" SpO2: 98% Weight: 123 lbs 04/17/2018 Blood Pressure 1: 126/76 Code : 8480-6 BMI: 19.4 Code : 13087-6 Heart Rate 1 : 83 bpm Height: 5'6" SpO2: 98% Weight: 120 lbs 03/24/2018 Blood Pressure 1: 132/80 Code : 8480-6 BMI: 19.0 Code : 82972-8 Heart Rate 1 : 75 bpm Height: 5'6" SpO2: 98% Weight: 118 lbs 03/10/2018 Blood Pressure 1: 120/74 Code : 8480-6 BMI: 18.9 Code : 47174-7 Heart Rate 1 : 70 bpm Height: 5'6" SpO2: 99% Weight: 117 lbs 08/29/2017 Blood Pressure 1: 130/82 Code : 8480-6 BMI: 20.0 Code : 67877-5 Heart Rate 1 : 87 bpm Height: 5'6" SpO2: 99% Weight: 124 lbs 07/19/2016 Blood Pressure 1: 132/82 Code : 8480-6 BMI: 22.9 Code : 71992-2 Heart Rate 1 : 88 bpm Height: 5'6" SpO2: 96% Weight: 142 lbs 03/23/2016 Blood Pressure 1: 110/82 Code : 8480-6 BMI: 24.4 Code : 36254-4 Heart Rate 1 : 82 bpm Height: 5'6" SpO2: 99% Weight: 151 lbs 09/01/2015 Blood Pressure 1: 126/80 Code : 8480-6 BMI: 25.8 Code : 57958-7 Heart Rate 1 : 90 bpm Height: [...] Diagnosis: Other hemorrhoids[ICD10: K64.8] Hailey Dodge MD, [facility] CPT-4 : 71579 09/11/2018 ([id number]) 70714 EST. PATIENT, LEVEL III Diagnosis: Secondary oligomenorrhea[ICD10: N91.4] Caridad Dodge MD, [facility] CPT-4: 23016 06/25/2018 ([id number]) 05220 EST. PATIENT, LEVEL III Diagnosis: Other insomnia[ICD10: G47.09] Caridad Dodge MD, [facility] CPT- 4: 41009 04/17/2018 16130 EST. PATIENT, LEVEL III Diagnosis: Other insomnia[ICD10: G47.09] Diagnosis: Abnormal weight loss[ICD10: R63.4] Hailey Dodge MD, [facility] CPT-4: 25679 03/24/2018 83351 EST. PATIENT, LEVEL III Diagnosis: Other insomnia[ICD10: G47.09] Diagnosis: Abnormal weight loss[ICD10: R63.4] Hailey Dodge MD, [facility] CPT-4: 52693 03/10/2018 20284 EST. PATIENT, LEVEL IV Diagnosis: Other insomnia[ICD10: G47.09] Hailey Dodge MD, [facility] CPT-4 : 39134 08/29/2017 ([id number]) 55176 EST. PATIENT, LEVEL III Diagnosis: Left lower quadrant pain[ICD10: R10.32] Diagnosis: Toxic gastroenteritis and colitis[ICD10: K52.1] Caridad Dodge MD, [facility] CPT-4: 15250 07/19/2016 44210 EST. PATIENT, LEVEL III Diagnosis: Other insomnia[ICD10: G47.09] Hailey Dodge MD, [facility] CPT-4 : 58323 03/23/2016 ([id number]) PREV VISIT NEW AGE 40-64 Diagnosis: Encounter for general adult medical examination without abnormal findings[ICD10: Z00.00] Caridad Dodge MD, [facility] CPT-4: 53545 09/01/2015 Plan of Care Planned Activity Notes Codes Status Date Visit Plan: Hemrrhoids - will send RX - pt is to notify clinic if symptoms do not improve and will refer to surgeon 09/11/2018 Appointment: Hailey Corral [facility]el[facility] [facility] (15 min) Moderate 09/11/2018 Patient Education: Patient Medication Summary Completed 09/11/2018 Visit Plan: Abnormal cycle - recommended that we check Estrogen, Progesterone, FSH, LH and Thyroid function. She may be going through early menopause or her thyroid may be abnormally functioning. Further investigation is pending. 06/25/2018 Appointment: Caridad Dodge WPtel: [address] [place], [place] [address] [place] (15 min) Moderate 06/25/2018 Patient Education: Patient Medication Summary Completed 06/25/2018 Appointment: Hailey Corral WPtel[facility] [facility] (30 min) Complex 05/01/2018 Visit Plan: [...] regimen. 04/17/2018 [facility]ment[phone] (15 min) Moderate 04/17/2018 Patient Education: Patient [...] continue ensure 03/24/2018 Appointment: Hailey Corral [facility]Ptel[facility] [phone] [facility] (15 min) Moderate 03/24/2018 Patient Education: [...] weight check 03/10/2018 Appointment: Hailey Corral WPtel[facility] [facility] (15 min) Moderate 03/10/2018 Patient Education: Patient Medication Summary Completed 03/10/2018 Visit Plan: Insomnia - Pt has been advised to increase the light in the house during the day, and start dimming the lights during the evening hours. Pt has been advised to cut out caffeine after 5pm. Daytime napping worsens night time insomnia. 08/29/2017 Appointment: Hailey Corral [facility]Ptel[facility] [phone] [facility] (30 min) Complex 08/29/2017 Patient Education: [...] not improved. 07/19/2016 Appointment: DarRose mariey WPtel: [phone] [facility] (15 min) Moderate 07/19/2016 Patient Education: Patient Medication Summary Completed 07/19/2016 Visit Plan: Insomnia - Pt has been advised to increase the light in the house during the day, and start dimming the lights during the evening hours. Pt has been advised to cut out caffeine after 5pm. Daytime napping worsens night time insomnia. 03/23/2016 Appointment: Andie Villarreal WPtel: [phone] [phone] [place] (15 min) Moderate 03/23/2016 Patient Education: [...] functioning. 09/01/2015 Appointment: Caridad Dodge WPtel: [phone] [facility] [place] (S) New Patient 09/01/2015 Patient Education: [...] an over the counter PROBIOTIC - like [employer] or Interview - take this twice daily x 2 [...]
--- OUTSIDE RECORDS SUMMARY | 2018-09-22 10:16 | XMS REPORT | Continuity of Care Document ---
Author Author [facility] Address Unknown Phone Unavailable Allergies Active Description Code Type Severity Reaction Onset Reported/Identified Relationship to Patient Clinical Status Yes No Known Drug Allergies [id number] Drug Allergy Unknown N/A 08/31/2013 Medications There is no data. Problems Date Dx Coded Attending Type Code Diagnosis Diagnosed By 08/31/2013 ZINA LONG, CLEMENTINA Alejandre Ot 300.00 ANXIETY STATE NOS 10/23/2013 ORLY PHD, INO Castelan 296.90 MOOD DISORDER NOS 10/23/2013 ORLY IZAGUIRRE, INO Castelan 298.9 P PSYCHOSIS NOS 04/28/2014 ORI LONG, JEROMY M Ot 288.60 LEUKOCYTOSIS, UNSPECIFIED 04/28/2014 ORI LONG, JEROMY M Ot 295.90 SCHIZOPHRENIA NOS-UNSPEC 04/28/2014 ORI LONG, JEROMY M Ot 298.9 PSYCHOSIS NOS 04/01/2015 JEROMY REHMAN MD M Ot V76.12 04/01/2015 JEROMY REHMAN MD M Ot V76.12 04/06/2015 JEROMY REHMAN MD M Ot V76.12 04/25/2015 JEROMY REHMAN MD M Ot V76.12 09/19/2018 JEROMY REHMAN MD Ot V76.12 OTH SCREEN MAMMO-MALIGN NEOPLASM OF STEFANIE 09/19/2018 JEROMY REHMAN MD M Ot V76.12 OTH SCREEN MAMMO-MALIGN NEOPLASM OF STEFANIE 09/19/2018 JEROMY REHMAN MD Ot V76.12 OTH SCREEN MAMMO-MALIGN NEOPLASM OF STEFANIE Procedures Code [place] [address] PSYCH DIAGNOSTIC EVALUATION 10/23/2013 Results There is no data. Encounters ACCT No. Visit Date/Time Discharge Status Pt. Type Provider Facility Loc./Unit Complaint [id number] 10/23/2013 09:52:00 10/23/2013 23:59:59 CLS Outpatient ORLY IZAGUIRRE, INO Castelan [id number] 08/29/2017 17:43:10 08/29/2017 23:59:59 CLS Outpatient [id number] 09/19/2018 11:43:00 09/19/2018 12:31:00 DIS Outpatient AXEL PIMENTEL MD [facility] PREOP RECTAL PAIN,RECTAL SKIN TAG [id number] 03/29/2015 10:04:00 03/29/2015 23:59:59 CLS Outpatient JEROMY REHMAN MD [facility] RAD SCREENING [id number] 04/28/2014 03:00:00 04/28/2014 14:53:00 DIS Inpatient JEROMY REHMAN MD [facility] 4TH ALTERED MS; LEUKOCYTOSIS [id number] 08/31/2013 11:25:00 08/31/2013 13:47:00 DIS Emergency ZINA LONG, CLEMENTINA Alejandre [facility] ER ANXIETY [id number] 09/22/2018 12:00:00 PEN Preadmit AXEL PIMENTEL MD [facility] SDC RECTAL PAIN,RECTAL SKIN TAG
--- OUTSIDE RECORDS SUMMARY | 2018-09-22 10:16 | XMS REPORT | CCD ---
Author Author [facility] Organization [facility] Address [address] [place] [address] Phone Care Team Providers Care Instrumentation And Controls Technician Name Role Phone PP Unavailable CCM Unavailable Summary Purpose Interface Exchange Insurance Providers Payer name Policy type / Coverage type Covered green party ID Effective Begin Date Effective End Date Blue Cross Blue [facility] Blue Cross/Blue [facility] [id number] 2017 Unknown Family history Mother Diagnosis Age At Onset Hypertension Unknown Father Diagnosis Age At Onset Hypertension Unknown Social History Social History Element Codes Description Effective Dates Marital status Unknown Jeff 09/01/2015 Number of children Unknown 0 09/01/[address]: 392972125 Never smoker 09/01/[address]: 708588751 Never drinks alcohol 09/01/2015 Allergies, Adverse Reactions, Alerts Substance Reaction Codes Entered Date Inactivated Date Status * NO KNOWN DRUG ALLERGIES Unknown 09/01/2015 No Inactive Date Active Past Medical History Illness Codes Condition Status Onset Date Resolved Date Secondary oligomenorrhea ICD-9: 626.1 ICD-10: N91.4 Active [...] Problems Condition Codes Effective Dates Condition Status Secondary oligomenorrhea ICD-9: 626.1 ICD-10: N91.4 06/25/2018 [...] Start Date Stop Date Status Fill Instructions Restoril 15 mg capsule RxNorm: 627295 2 Capsule(s) PO QHS 04/18 No Stop Date Active Restoril 15 mg capsule RxNorm: 704219 1 Capsule(s) PO QHS 04/1704/17/2018 Inactive Xanax 1 mg tablet RxNorm: 162019 1 Tablet(s) PO QHS as needed insomnia 04/09/2018 04/16/2018 Inactive Remeron 30 mg tablet RxNorm: 262550 1 Tablet(s) PO QHS 201704/16/2018 Inactive Remeron 15 mg tablet RxNorm: 772795 1 Tablet(s) PO QHS 201703/31/2018 Inactive Anusol-HC 2.5 % topical cream with perineal applicator RxNorm: 6706583 1 Application TOP BID x3 days, then daily x2 days, then as needed 03/18/2018 No Stop Date Active Xanax 1 mg tablet RxNorm: 121562 1 Tablet(s) PO QHS as needed insomnia 03/10/2018 04/08/2018 Inactive alprazolam 0.5 mg tablet RxNorm: 655128 1 Tablet(s) PO QHS as needed insomnia 08/29/2017 02/26/2018 Inactive alprazolam 0.5 mg tablet RxNorm: 958305 1 Tablet(s) PO QHS as needed insomnia 12/07/2016 02/03/2017 Inactive metronidazole 500 mg tablet RxNorm: 909611 1 Tablet(s) PO TID 07/19/2016 07/23/2016 Inactive alprazolam 0.5 mg tablet RxNorm: 669686 1 Tablet(s) PO QHS as needed insomnia 04/23/2016 05/22/2016 Inactive Fish Oil 360 mg-1,200 mg capsule RxNorm: 706449 1 Capsule(s) PO BID No Start Date Active Abilify 10 mg tablet RxNorm: 927431 1 Tablet(s) PO daily No Start Date Active Anusol-HC 2.5 % topical cream with perineal applicator RxNorm: 7117893 1 Application TOP BID x3 days, then daily x2 days, then as needed No Start Date 03/17/2018 Inactive Medication Administered No Medication Administered data Immunizations Vaccine Codes Date Status Influenza CVX: 141 08/15/2017 completed Assessments Condition Codes Effective Dates Secondary oligomenorrhea ICD-10: N91.4 ICD-9: 626.1 06/25/2018 Other insomnia ICD-10: G47.09 ICD-9: 327.09 04/17/2018 Abnormal weight loss ICD-10: R63.4 ICD-9: 783.21 03/24/2018 Toxic gastroenteritis and colitis ICD-10: K52.1 ICD-9: 558.2 07/19/2016 Left lower quadrant pain ICD-10: R10.32 ICD-9: 789.04 07/19/2016 Encounter for general adult medical examination without abnormal findings ICD-10: Z00.00 ICD-9: V70.0 09/01/2015 Reason For Visit Reason For Visit Effective Dates Notes menstrual irregularity 06/25/2018 insomnia 04/17/2018 insomnia 03/24/2018 insomnia 03/10/2018 medication follow up 08/29/2017 diarrhea 07/19/2016 insomnia 03/23/2016 Results Observation Observation Code Item Item Code Result Date Tsh Ord6 TSH (3rd IS) 2.49 uIU/mL 06/25/2018 Lh Ord19 LH 10.72 mIU/mL 06/25/2018 Comp Metabolic Rwe992 NA 139 mEq/L 06/25/2018 Comp Metabolic Feq146 K 4.3 mEq/L 06/25/2018 Comp Metabolic Jad684 CL 105 mEq/L 06/25/2018 Comp Metabolic Eek474 CO2 27.0 mEq/L 06/25/2018 Comp Metabolic Jzz492 ANION GAP 11 06/25/2018 Comp Metabolic Kne481 GLUCOSE 88 mg/dL 06/25/2018 Comp Metabolic Vmc996 Creat 0.7 mg/dL 06/25/2018 Comp Metabolic Yax726 eGFR 105 ml/min/1.73m2 06/25/2018 Comp Metabolic Pup876 BUN 14 mg/dL 06/25/2018 Comp Metabolic Nty765 B/C Ratio 21.5 Ratio 06/25/2018 Comp Metabolic Gxi572 CALCIUM 9.5 mg/dL 06/25/2018 Comp Metabolic Qag979 ALK PHOS 57 U/L 06/25/2018 Comp Metabolic Jrg409 AST(SGOT) 13 U/L 06/25/2018 Comp Metabolic Lim973 ALT(SGPT) 15 U/L 06/25/2018 Comp Metabolic Ibj932 BILI T 0.4 mg/dL 06/25/2018 Comp Metabolic Jfv729 ALBUMIN 4.6 g/dL 06/25/2018 Comp Metabolic Dnn617 TPRO 7.4 g/dL 06/25/2018 Comp Metabolic Dsk638 GLOB 2.9 g/dL 06/25/2018 Comp Metabolic Hnj771 A/G Ratio 1.6 Ratio 06/25/2018 Comp Metabolic Eno043 Osmo 277 mOsmo 06/25/2018 Cbc With Differential [...] 29.9 pg 06/25/2018 Cbc With Differential Ord2 [place]% 4.9 % 06/25/2018 Cbc With Differential Ord2 [...] 2.39 K/ul 06/25/2018 Cbc With Differential Ord2 [place] ABS# 0.6 K/ul 06/25/2018 Cbc With Differential Ord2 Eos ABS# 0.1 K/ul 06/25/2018 Cbc With Differential Ord2 Baso ABS# 0.1 K/ul 06/25/2018 Fsh Ord18 FSH 6.30 mlU/ml 06/25/2018 Progesterone Sju255 Prog 6.73 ng/mL 06/25/2018 Tsh Ord6 hTSH II 2.04 uIU/mL 09/02/2015 Lipid Ord30 CHOL 209 mg/dL 09/02/2015 Lipid Ord30 HDL 37.0 mg/dl 09/02/2015 Lipid Ord30 TRIG 278 mg/dL 09/02/2015 Lipid Ord30 LDL 116 mg/dL 09/02/2015 Lipid Ord30 C/HDL 5.6 Ratio 09/02/2015 Comp Metabolic Icq242 NA 137 mEq/L 09/02/2015 Comp Metabolic Jcn043 K 3.8 mEq/L 09/02/2015 Comp Metabolic Mxp865 CL 103 mEq/L 09/02/2015 Comp Metabolic Saj172 CO2 27.0 mEq/L 09/02/2015 Comp Metabolic Bvh447 ANION GAP 11 09/02/2015 Comp Metabolic Auf610 GLUCOSE 97 mg/dL 09/02/2015 Comp Metabolic Pce116 Creat 0.8 mg/dL 09/02/2015 Comp Metabolic Fxl900 eGFR 90 ml/min/1.73m2 09/02/2015 Comp Metabolic Fmd714 BUN 13 mg/dL 09/02/2015 Comp Metabolic Igs059 B/C Ratio 17.3 Ratio 09/02/2015 Comp Metabolic Jed095 CALCIUM 9.7 mg/dL 09/02/2015 Comp Metabolic Qbw496 ALK PHOS 69 U/L 09/02/2015 Comp Metabolic Qmi255 AST(SGOT) 19 U/L 09/02/2015 Comp Metabolic Kdt386 ALT(SGPT) 34 U/L 09/02/2015 Comp Metabolic Kzq751 BILI T 0.8 mg/dL 09/02/2015 Comp Metabolic Xjq891 ALBUMIN 4.6 g/dL 09/02/2015 Comp Metabolic Okf458 TPRO 7.4 g/dL 09/02/2015 Comp Metabolic Nex483 GLOB 2.8 g/dL 09/02/2015 Comp Metabolic Ffp583 A/G Ratio 1.7 Ratio 09/02/2015 Comp Metabolic Uqf328 Osmo 274 mOsmo 09/02/2015 %Hba1C Nla677 % HbA1c 37348-8 5.3 % 09/02/2015 %Hba1C Qie163 Gluc Ave 105 mg/dL 09/02/2015 Cbc With [...] Dates Constitutional No recent illness 2017 Constitutional fatigue [...] No Procedures data Vital Signs Date Vital 06/25/2018 Blood Pressure 1: 122/72 Code : 8480-6 BMI: 19.9 Code : 19873-9 Heart Rate 1 : 70 bpm Height: 5'6" SpO2: 98% Weight: 123 lbs 04/17/2018 Blood Pressure 1: 126/76 Code : 8480-6 BMI: 19.4 Code : 09181-1 Heart Rate 1 : 83 bpm Height: 5'6" SpO2: 98% Weight: 120 lbs 03/24/2018 Blood Pressure 1: 132/80 Code : 8480-6 BMI: 19.0 Code : 12849-9 Heart Rate 1 : 75 bpm Height: 5'6" SpO2: 98% Weight: 118 lbs 03/10/2018 Blood Pressure 1: 120/74 Code : 8480-6 BMI: 18.9 Code : 91346-6 Heart Rate 1 : 70 bpm Height: 5'6" SpO2: 99% Weight: 117 lbs 08/29/2017 Blood Pressure 1: 130/82 Code : 8480-6 BMI: 20.0 Code : 84278-1 Heart Rate 1 : 87 bpm Height: 5'6" SpO2: 99% Weight: 124 lbs 07/19/2016 Blood Pressure 1: 132/82 Code : 8480-6 BMI: 22.9 Code : 33147-2 Heart Rate 1 : 88 bpm Height: 5'6" SpO2: 96% Weight: 142 lbs 03/23/2016 Blood Pressure 1: 110/82 Code : 8480-6 BMI: 24.4 Code : 77596-1 Heart Rate 1 : 82 bpm Height: 5'6" SpO2: 99% Weight: 151 lbs 09/01/2015 Blood Pressure 1: 126/80 Code : 8480-6 BMI: 25.8 Code : 57461-1 Heart Rate 1 : 90 bpm Height: 5'6" SpO2: 98% Weight: 160 lbs Functional Status No Functional Status data History of Present Illness Symptom Name Status Result Effective Date Notes menstrual irregularity Quality constant 06/25/2018 None menstrual [...] data Encounters Encounter Performer Location Codes Date ([id number]) 33071 EST. PATIENT, LEVEL III Diagnosis: Secondary oligomenorrhea[ICD10: N91.4] [facility] CPT-4: 79252 06/25/2018 ([id number]) 28410 EST. PATIENT, LEVEL III Diagnosis: Other insomnia[ICD10: G47.09] [facility] CPT- 4: 56895 04/17/2018 10761 EST. PATIENT, LEVEL III Diagnosis: Other insomnia[ICD10: G47.09] Diagnosis: Abnormal weight loss[ICD10: R63.4] [facility] MD, [facility] CPT-4: 06047 03/24/2018 03306 EST. PATIENT, LEVEL III Diagnosis: Other insomnia[ICD10: G47.09] Diagnosis: Abnormal weight loss[ICD10: R63.4] [facility], [facility] CPT-4: 62483 03/10/2018 22679 EST. PATIENT, LEVEL IV Diagnosis: Other insomnia[ICD10: G47.09] [facility] MD, [facility] CPT-4 : 76953 08/29/2017 ([id number]) 27046 EST. PATIENT, LEVEL III Diagnosis: Left lower quadrant pain[ICD10: R10.32] Diagnosis: Toxic gastroenteritis and colitis[ICD10: K52.1] [facility], [facility] CPT-4: 25354 07/19/2016 03758 EST. PATIENT, LEVEL III Diagnosis: Other insomnia[ICD10: G47.09] [facility] MD, [facility] CPT-4 : 34741 03/23/2016 (91635) PREV VISIT NEW AGE 40-64 Diagnosis: Encounter for general adult medical examination without abnormal findings[ICD10: Z00.00] [facility] CPT-4: 08287 09/01/2015 Plan of Care Planned Activity Notes Codes Status Date Visit Plan: Abnormal cycle - recommended that we check Estrogen, Progesterone, FSH, LH and Thyroid function. She may be going through early menopause or her thyroid may be abnormally functioning. Further investigation is pending. 06/25/2018 Patient Education: Patient Medication Summary Completed 06/25/2018 Care Plan: Estrogens Total Pending 06/25/2018 Appointment: Hailey Corral WPtel: [address] [place], [place] [phone] (30 min) [facility] 05/01/2018 Visit Plan: Insomnia - Pt has [...] medication regimen. 04/17/2018 Appointment: [facility] WPtel: [facility] (15 min) Moderate 04/17/2018 Patient Education: Patient [...] continue ensure 03/24/2018 Appointment: Hailey Corral WPtel: [facility] (15 min) Moderate 03/24/2018 Patient Education: Patient [...] weight check 03/10/2018 Appointment: Hailey Corral WPtel: [facility] (15 min) Moderate 03/10/2018 Patient Education: Patient Medication Summary Completed 03/10/2018 Visit Plan: Insomnia - Pt has been advised to increase the light in the house during the day, and start dimming the lights during the evening hours. Pt has been advised to cut out caffeine after 5pm. Daytime napping worsens night time insomnia. 08/29/2017 Appointment: Hailey Corral WPtel: [facility] (30 min) Complex 08/29/2017 Patient Education: Patient [...] Call if symptoms not improved. 07/19/2016 Appointment[facility] [place] [phone] [facility] (15 min) Moderate 07/19/2016 Patient Education: Patient Medication Summary Completed 07/19/2016 Visit Plan: Insomnia - Pt has been advised to increase the light in the house during the day, and start dimming the lights during the evening hours. Pt has been advised to cut out caffeine after 5pm. Daytime napping worsens night time insomnia. 03/23/2016 [facility] [phone] [phone] (15 min) Moderate 03/23/2016 Patient Education: Patient [...] panel, CBC, and renal functioning. 09/01/2015 Appointment: Dar, [phone] [facility] [place] ([place] New Patient 09/01/2015 Patient Education: [...] in 2 weeks for weight check . Insomnia - Pt has been advised to increase the light in the house during the day, and start dimming the lights during the evening hours. Pt has been advised to cut out caffeine after 5pm. Daytime napping worsens night time insomnia. take the flagyl (metronidazole) three times daily x 5 days. get an over the counter PROBIOTIC - like [employer] ([employer] or [employer] - take this twice daily x 2 [...]
--- NOTE | 2018-09-22 11:23 | Progress Note-Pre Operative ---
Pre-Operative Progress Note H&P Reviewed The H&P was reviewed, patient examined and no changes noted. Date Seen by Provider: Sep 18, 2018 Time Seen by Provider: 12:05 Date H&P Reviewed: Sep 22, 2018 Time H&P Reviewed: 11:23 Pre-Operative Diagnosis: rectal pain and bleeding AXEL PIMENTEL MD Sep 22, 2018 11:23
[2018-09-22] MEDS ORDERED: LIDOCAINE PF 2% 5 ML (XYLOCAINE) VIAL ONE (11:33)
[2018-09-22] MEDS ORDERED: proPOfol 200 MG/20 ML (DIPRIVAN) VIAL IV ONE (11:33)
[2018-09-22] MEDS ORDERED: ONDANSETRON 4 MG/2 ML (SDV) Z0FRAN ONE (11:33)
[2018-09-22] MEDS ORDERED: MIDAZOLAM 2 MG/2 ML (VERSED) VIAL ONE (11:34)
[2018-09-22] MEDS ORDERED: SEVOFLURANE (ULTANE) 15 ML INHAL SOLN ONE ×3 (11:36→12:16)
[2018-09-22] MEDS ORDERED: BUP/EPI 0.5% 1:200,000 (SENSORCAINE) 30 ML VIAL ONE (12:09)
[2018-09-22] MEDS ORDERED: NEOSPORIN + PAIN RELIEF CREAM 15 GM ONE (12:41)
--- NOTE | 2018-09-22 12:49 | Operative Report ---
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 She was offered an exam under anesthetic with a view to establishing a definitive diagnosis with colonoscopy to find the source of rectal bleeding and possibly excise the offending, symptomatic skin tag. Informed consent was obtained after reviewing the procedure in detail. Description of the procedure: She underwent a mechanical bowel preparation and was placed in lithotomy position, after being anesthetized. A gram of Ancef was administered intravenously as prophylaxis against wound infection. Examination under anesthetic: A chronic posterior anal fissure with an associated sentinel pile( posterior anal skin tag)was identified. The degree of external hemorrhoids was very minimal. Colonoscopy to cecum: Digital examination was normal. The colonoscope was then introduced into the rectum and advanced all the way up to the cecum. The quality of bowel preparation was excellent. It was then withdrawn slowly and the was examined in a systematic fashion. Finding: Chronic posterior anal fissure with very minimal internal hemorrhoids. A gentle digital anal dilatation was performed to facilitate healing of the ulcer. Subsequently 0.5 percent Marcaine with epinephrine was infiltrated deep to the fissure along the submucosal plane and the sentinel skin tag excised. The defect was closed using 4-0 Vicryl in a subcuticular fashion. She tolerated the procedure well, was extubated in the operating room and taken to the recovery room in a stable condition. Findings of the Procedure see operative report Allergies and Home Medications Allergies Coded Allergies: No Known Drug Allergies (Unverified , 08/31/13) Home Medications Aripiprazole 10 Mg Tablet, 10 MG PO DAILY, (Reported) Patient Home Medication List Home Medication List Reviewed: Yes AXEL PIMENTEL MD Sep 22, 2018 12:49
--- NOTE | 2018-09-22 12:51 | Discharge Inst-Simple/Standard ---
Discharge Inst-Standard Discharge Medications New, Converted or Re-Newed RX: Other Patient Instructions/Follow Up Plan of Care/Instructions/FU: stool softeners as needed. To use the ointment given to her twice a day. Follow-up in 3 weeks Activity as Tolerated: Yes Discharge Diet: No Restrictions AXEL PIMENTEL MD Sep 22, 2018 12:51
[2018-09-22] MEDS ORDERED: MEPERIDINE (DEMEROL) INJ 50 MG/ML IVP ONE (13:00)
[2018-09-22] MEDS ORDERED: morphine INJ 10 MG/ML 1ML (SYR OR VIAL) IVP ONE (13:00)
--- NOTE | 2018-09-22 13:16 | Anesthesia-General Post-Op ---
General Patient Condition Mental Status/LOC: Same as Preop Cardiovascular: Satisfactory Nausea/Vomiting: Absent Respiratory: Satisfactory Pain: Controlled Complications: Absent Post Op Complications Complications None Follow Up Care/Instructions Patient Instructions None needed. Anesthesia/Patient Condition Patient Condition Patient is doing well, no complaints, stable vital signs, no apparent adverse anesthesia problems. No complications reported per nursing. TIM SIDDIQUI CRNA Sep 22, 2018 13:16
[2018-09-22 13:50] VITALS: BP 111/54
[2018-09-22 14:15] VITALS: BP 122/67
== END 2018-09-22 14:40 | disposition home or self-care (01) ==
LOC: SDC 09:57
PROVIDERS: ATTEND Surgery
DX: K60.1 Chronic anal fissure (principal); Z11.2 Encounter for screening for other bacterial diseases; K64.4 Residual hemorrhoidal skin tags; F20.9 Schizophrenia, unspecified
CPT/HCPCS: 84703; 87081

== ENCOUNTER 2021-01-31 08:48 | Emergency (ER) | payer OTHER, BC ==
[~2021-01-31] VITALS: Ht 167.4 cm; Wt 68.0 kg
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
[2021-01-31 10:17] VITALS: BP 134/81
== END 2021-01-31 10:16 | disposition home or self-care (01) ==
LOC: EDUNIT# 08:48 → ER 08:50
DX: S50.312A Abrasion of left elbow, initial encounter (principal); F20.9 Schizophrenia, unspecified; V49.50XA Passenger injured in collision with unspecified motor vehicles in traffic accident, initial encounter; Y92.410 Unspecified street and highway as the place of occurrence of the external cause
CPT/HCPCS: 99282

== ENCOUNTER → 2021-02-07 | Outpatient (CLI) | payer OTHER, BC ==
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
== END ==
LOC: RAD 09:52
PROVIDERS: ATTEND Nurse Practitioner Family
DX: M25.522 Pain in left elbow (principal)
CPT/HCPCS: 73080

== ENCOUNTER 2021-11-06 08:22 | Emergency (ER) | payer OTHER, BC ==
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
[2021-11-06 08:53] LABS: BASOPHILS % (AUTO) 1 % (0-10); EOSINOPHILS # (AUTO) 0.1 10^3/uL (0.0-0.3); EOSINOPHILS % (AUTO) 1 % (0-10); HEMATOCRIT 42 % (35-52); HEMOGLOBIN 13.5 g/dL (11.5-16.0); LYMPHOCYTES # (AUTO) 1.3 10^3/uL (1.0-4.0); LYMPHOCYTES % (AUTO) 16 % (12-44); MEAN CORPUSCULAR HEMOGLOBIN 29 pg (25-34); MEAN CORPUSCULAR HGB CONC 32 g/dL (32-36); MEAN CORPUSCULAR VOLUME 91 fL (80-99); MEAN PLATELET VOLUME 9.8 fL (9.0-12.2); MONOCYTES # (AUTO) 0.3 10^3/uL (0.0-1.0); MONOCYTES % (AUTO) 4 % (0-12); NEUTROPHILS # (AUTO) 6.1 10^3/uL (1.8-7.8); NEUTROPHILS % (AUTO) 77 % (42-75); PLATELET COUNT 245 10^3/uL (130-400); WHITE BLOOD COUNT 7.9 10^3/uL (4.3-11.0)
[2021-11-06 09:06] LABS: ALBUMIN 4.2 GM/DL (3.2-4.5)
[2021-11-06 09:08] LABS: CALCIUM 9.4 MG/DL (8.5-10.1)
[2021-11-06 09:09] LABS: TOTAL PROTEIN 7.3 GM/DL (6.4-8.2)
[2021-11-06 09:11] LABS: BILIRUBIN,TOTAL 0.6 MG/DL (0.1-1.0)
[2021-11-06 09:13] LABS: CREATININE SERUM 0.77 MG/DL (0.60-1.30)
[2021-11-06] MEDS ORDERED: NS 100 ML (IVPB) BAG IV ONE (09:15)
[2021-11-06] MEDS ORDERED: IOHEXOL 350 MG/ML 100 ML (OMNIPAQUE 350) VIAL IV ONE (09:15)
[2021-11-06] MEDS ORDERED: HOLD METFORMIN - RECEIVED CONTRAST 20 ML VIAL IV SCH (09:15)
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
[2021-11-06 09:20] LABS: EOSINOPHILS % (MANUAL) 1 %; LYMPHOCYTES % (MANUAL) 16 %; MONOCYTES % (MANUAL) 6 %; NEUTROPHILS % (MANUAL) 77 %; RBC MORPH NORMAL
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
[2021-11-06 11:28] VITALS: BP 107/45
== END 2021-11-06 11:28 | disposition home or self-care (01) ==
LOC: EDUNIT# 08:22 → ER 08:23
DX: M54.50 Low back pain, unspecified (principal); D27.1 Benign neoplasm of left ovary; Z79.899 Other long term (current) drug therapy; V43.62XA Car passenger injured in collision with other type car in traffic accident, initial encounter
CPT/HCPCS: 36415; 71045; 74177; 80053; 85007; 85027

== ENCOUNTER 2022-01-10 14:37 | Outpatient (CLI) | payer BC, OTHER ==
[~2022-01-10] VITALS: Ht 167.7 cm; Wt 54.2 kg
[2022-01-11] MEDS ORDERED: HYDR-3817 PO (11:33)
== END 2022-01-10 14:59 | disposition home or self-care (01) ==
LOC: PREOP 14:37
PROVIDERS: ATTEND Surgery
DX: Z01.818 Encounter for other preprocedural examination (principal)

== ENCOUNTER 2022-01-11 10:47 | Day surgery (SDC) | payer BC ==
[2022-01-11] VITALS (9 sets, daily range): BP systolic 105–131; BP diastolic 48–80
[~2022-01-11] VITALS: Ht 167.7 cm; Wt 54.2 kg
[2022-01-11] MEDS ORDERED: ceFAZolin INJECTION 1,000 MG VIAL IV ONE (11:00)
--- NOTE | 2022-01-11 11:32 | Progress Note-Pre Operative ---
Pre-Operative Progress Note H&P Reviewed The H&P was reviewed, patient examined and no changes noted. Date Seen by Provider: Jan 11, 2022 Time Seen by Provider: 11:15 Date H&P Reviewed: Jan 11, 2022 Time H&P Reviewed: 11:15 Pre-Operative Diagnosis: perianal pain JODY HAY MD Jan 11, 2022 11:32
[2022-01-11] MEDS ORDERED: HYDR-3817 PO (11:33)
[2022-01-11] MEDS ORDERED: fentaNYL INJ 100 MCG/2 ML AMP ONE (11:35)
[2022-01-11] MEDS ORDERED: MIDAZOLAM 2 MG/2 ML (VERSED) VIAL ONE (11:35)
--- NOTE | 2022-01-11 11:35 | Discharge Inst-Surgical ---
D/C Lap Instructions-SATNAM Follow Up Appt in 2 weeks Activity as tolerated sitz bath QID and after every BM. fiber supplement >25grams/daily Regular Diet Symptoms to Report: Fever over 101 degree F, Nausea/Vomiting Infection Signs and Symptoms to report: Increased redness, Foul odor of wound, Increased drainage Bathing instructions: May shower Operative Area Clean/Dry; Keep incision clean/dry If any problems/questions: Contact your physician or go to Emergency Room JODY HAY MD Jan 11, 2022 11:35
[2022-01-11] MEDS: LACTATED RINGERS 1,000 ML IV PRN ×2 (11:40→12:43)
[2022-01-11] MEDS ORDERED: ACETAMINOPHEN 325 MG TABLET PO PRN (11:45)
[2022-01-11] MEDS ORDERED: oxyCODONE/APAP 5/325MG (PERCOCET 5) TABLET PO PRN (11:45)
[2022-01-11] MEDS ORDERED: ONDANSETRON 4 MG/2 ML (SDV) Z0FRAN IVP PRN ×2 (11:45→13:15)
[2022-01-11] MEDS ORDERED: morphine INJ 10 MG/ML 1ML (SYR OR VIAL) IVP PRN ×2 (11:45)
[2022-01-11] MEDS ORDERED: LIDOCAINE/EPI 1%-1:200,000 (XYLOCAINE) 30 ML VIAL ONE (11:48)
[2022-01-11] MEDS ORDERED: proPOfol 200 MG/20 ML (DIPRIVAN) VIAL IV ONE (12:55)
[2022-01-11] MEDS ORDERED: LIDOCAINE PF 2% 5 ML (XYLOCAINE) VIAL ONE (12:55)
[2022-01-11] MEDS ORDERED: KETOROLAC 30 MG/ML VIAL ONE (12:55)
[2022-01-11] MEDS ORDERED: ONDANSETRON 4 MG/2 ML (SDV) Z0FRAN ONE (12:55)
--- NOTE | 2022-01-11 12:59 | Progress Note-Post Operative ---
Post-Operative Progess Note Surgeon (s)/Quality Improvement Engineer (s) Surgeon JODY HAY MD Quality Improvement Engineer: maria isabel magdaleno SIGNALS OFFICER Pre-Operative Diagnosis perianal pain Post-Operative Diagnosis anal fissure, internal hemorrhoid, anal stenosis. Procedure & Operative Findings Date of Procedure 01/11/22 Procedure Performed/Findings anal exam under anesthesia, pudendal nerve block, fissurectomy and hemorrhoidectomy, anorectal advancement flap. Anesthesia Type general LMA, pudendal nerve block, local Estimated Blood Loss Estimated blood loss (mL): minimal Specimens/Packing Specimens Removed posterior anal fissure and hemorrhoid. JODY HAY MD Jan 11, 2022 12:59
[2022-01-11] MEDS ORDERED: morphine INJ 10 MG/ML 1ML (SYR OR VIAL) IVP ONE (13:15)
[2022-01-11] MEDS ORDERED: HYDROmorphone 2 MG/ML VIAL (DILAUDID) IV ONE (13:15)
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
--- NOTE | 2022-01-11 14:18 | Anesthesia-General Post-Op ---
General Patient Condition Mental Status/LOC: Same as Preop Cardiovascular: Satisfactory Nausea/Vomiting: Absent Respiratory: Satisfactory Pain: Controlled Complications: Absent Post Op Complications Complications None Follow Up Care/Instructions Patient Instructions None needed. Anesthesia/Patient Condition Patient Condition Patient is doing well, no complaints, stable vital signs, no apparent adverse anesthesia problems. No complications reported per nursing. THERESE DASILVA CRNA Jan 11, 2022 14:18
== END 2022-01-11 15:07 ==
LOC: SDC 10:47
PROVIDERS: ATTEND Surgery
DX: K62.89 Other specified diseases of anus and rectum (principal); K62.4 Stenosis of anus and rectum; K62.5 Hemorrhage of anus and rectum; K64.2 Third degree hemorrhoids
CPT/HCPCS: 84703; 87081; 88304

== ENCOUNTER 2023-04-07 13:13 | Emergency (ER) | payer BC ==
[~2023-04-07] VITALS: Ht 167.7 cm; Wt 54.4 kg
[~2023-04-07 13:13] MED LIST changes: +HYDR-3817 PO
--- NOTE | 2023-04-07 13:31 | ED Cardiac General ---
History of Present Illness General Chief Complaint: Cardiac/General Problems Stated Complaint: FEELS LIKE BLOOD PRESSURE IS HIGH Source: patient Exam Limitations: no limitations History of Present Illness Date Seen by Provider: April 07, 2023 Time Seen by Provider: 13:29 Initial Comments Patient is a 47-year-old female presents ED for concern for elevated blood pressure. She took her blood pressure right before arrival of that read 120/100. Patient states yesterday she had a small nosebleed. That resolved quickly. Today she woke up with occipital head pain, neck pain. Described as pressure and intermittent. No pain at this time. Blurry vision over the past 2 weeks. She denies of any focal neural deficits, visual loss, sore throat, chest pain, cough, shortness of breath, vomiting, diarrhea or fever. She states she has not been sleeping well over the past few days. She is unclear if her headache is result from her blood pressure or not sleeping. She is currently on Zyprexa. History of schizophrenia. Denies dysuria, hematuria, abdominal pain. Denies any history of coronary artery disease. No recent travels or surgeries Allergies and Home Medications Allergies Coded Allergies: No Known Drug Allergies (Unverified , 01/11/22) Patient Home Medication List Home Medication List Reviewed: Yes Aripiprazole (Abilify) 10 Mg Tablet, 10 MG PO DAILY, (Reported) Entered as Reported by: TYLER GOLDSMITH on 09/19/18 1238 Hydrocodone/Acetaminophen (Hydrocodone-Acetamin 7.5-325) 1 Each Tablet, 1 EACH PO Q4H Prescribed by: JODY HAY on 01/11/22 1133 Review of Systems Review of Systems Constitutional: No chills, No diaphoresis, No fever, No malaise, No weakness EENTM: Blurred Vision; No Double Vision, No Eye Pain Respiratory: Denies Cough, Denies Orthopnea, Denies Shortness of Air Cardiovascular: Denies Chest Pain, Denies Edema Gastrointestinal: Denies Abdominal Pain, Denies Diarrhea, Denies Nausea, Denies Vomiting Genitourinary: Denies Burning, Denies Discharge Musculoskeletal: No back pain, No joint pain Skin: No change in color, No change in hair/nails All Other Systems Reviewed Negative Unless Noted: Yes Past Szfwoqz-Wwsxvu-[id number] Hx Immunizations Up To Date First/Initial COVID19 Vaccinat: 2020 Second COVID19 Vaccination Josep: 2020 Third COVID19 Vaccination Date: 2021 Seasonal Allergies Seasonal Allergies: No Past Medical History Surgeries: Yes (SKIN TAG IN RECTUM) Respiratory: No Cardiac: Yes Coronary Artery Disease Neurological: No Reproductive Disorders: No Genitourinary: No Gastrointestinal: Yes (History of rectal pain and bleeding, RECTAL SKIN TAG 2020) Musculoskeletal: No Endocrine: No HEENT: No Cancer: No Psychosocial: Yes Schizophrenia Integumentary: Yes (SKIN TAG IN RECTUM) Blood Disorders: No Family Medical History Patient reports no known family medical history. Physical Exam Vital Signs Vital Signs - First Documented 04/07/23 04/07/23 13:18 15:08 Temp 36.2 Pulse 69 Resp 15 B/P (MAP) 164/91 (115) Pulse Ox 99 O2 Delivery Room Air Capillary Refill : Height, Weight, BMI Height: 5'6.00" Weight: 126lbs. 0.0oz. 57.787247gs; 19.27 BMI Method:Estimated General Appearance: No Apparent Distress, WD/WN HEENT: PERRL/EOMI, TMs Normal, Normal ENT Inspection, Pharynx Normal Neck: Full Range of Motion, Normal Inspection, Non Tender, Supple Respiratory: Chest Non Tender, Lungs Clear, Normal Breath Sounds, No Accessory Muscle Use, No Respiratory Distress Cardiovascular: Regular Rate, Rhythm, No Edema, No Gallop, No JVD Gastrointestinal: Normal Bowel Sounds, No Organomegaly, No Pulsatile Mass, Non Tender, Soft Extremity: Normal Capillary Refill Neurologic/Psychiatric: Alert, Oriented x3, No Motor/Sensory Deficits, Normal Mood/Affect Skin: Normal Color, Warm/Dry Progress/Results/Core Measures Results/Orders Lab Results Laboratory Tests Test 04/07/23 13:32 04/07/23 14:01 Range/Units White Blood Count 6.9 4.3-11.0 10^3/uL Red Blood Count 4.95 3.80-5.11 10^6/uL Hemoglobin 14.5 11.5-16.0 g/dL Hematocrit 43 35-52 % Mean Corpuscular Volume 88 80-99 fL Mean Corpuscular Hemoglobin 29 25-34 pg Mean Corpuscular Hemoglobin Concent 33 32-36 g/dL Red Cell Distribution Width 12.0 10.0-14.5 % Platelet Count 245 130-400 10^3/uL Mean Platelet Volume 9.5 9.0-12.2 fL Immature Granulocyte % (Auto) 0 % Neutrophils (%) (Auto) 67 42-75 % Lymphocytes (%) (Auto) 26 12-44 % Monocytes (%) (Auto) 5 0-12 % Eosinophils (%) (Auto) 2 0-10 % Basophils (%) (Auto) 0 0-10 % Neutrophils # (Auto) 4.6 1.8-7.8 10^3/uL Lymphocytes # (Auto) 1.8 1.0-4.0 10^3/uL Monocytes # (Auto) 0.4 0.0-1.0 10^3/uL Eosinophils # (Auto) 0.1 0.0-0.3 10^3/uL Basophils # (Auto) 0.0 0.0-0.1 10^3/uL Immature Granulocyte # (Auto) 0.0 0.0-0.1 10^3/uL Sodium Level 142 135-145 MMOL/L Potassium Level 3.8 3.6-5.0 MMOL/L Chloride Level 107 98-107 MMOL/L Carbon Dioxide Level 25 21-32 MMOL/L Anion Gap 10 5-14 MMOL/L Blood Urea Nitrogen 15 7-18 MG/DL Creatinine 0.83 0.60-1.30 MG/DL Estimat Glomerular Filtration Rate 86 BUN/Creatinine Ratio 18 Glucose Level 98 70-105 MG/DL Calcium Level 9.7 8.5-10.1 MG/DL Corrected Calcium 8.5-10.1 MG/DL Total Bilirubin 0.7 0.1-1.0 MG/DL Aspartate Amino Transf (AST/SGOT) 19 5-34 U/L Alanine Aminotransferase (ALT/SGPT) 24 0-55 U/L Alkaline Phosphatase 81 40-136 U/L Total Protein 7.8 6.4-8.2 GM/DL Albumin 4.7 H 3.2-4.5 GM/DL Urine Color YELLOW Urine Clarity CLEAR Urine pH 6.5 5-9 Urine Specific [place] 1.015 L 1.016-1.022 Urine Protein NEGATIVE NEGATIVE Urine Glucose (UA) NEGATIVE NEGATIVE Urine Ketones NEGATIVE NEGATIVE Urine Nitrite NEGATIVE NEGATIVE Urine Bilirubin NEGATIVE NEGATIVE Urine Urobilinogen 0.2 < = 1.0 MG/DL Urine Leukocyte Esterase NEGATIVE NEGATIVE Urine RBC (Auto) 1+ H NEGATIVE Urine RBC 2-5 H /HPF Urine WBC RARE /HPF Urine Squamous Epithelial Cells 0-2 /HPF Urine Crystals NONE /LPF Urine Bacteria NEGATIVE /HPF Urine Casts NONE /LPF Urine Mucus NEGATIVE /LPF Urine Culture Indicated NO My Orders Orders - KARLOS SOOD Cbc With Automated Diff (04/07/23 13:27) Comprehensive Metabolic Panel (04/07/23 13:27) Ua Culture If Indicated (04/07/23 13:28) Ct Head Wo (04/07/23 13:28) Vital Signs/I&O 04/07/23 04/07/23 13:18 15:08 Temp 36.2 36.4 Pulse 69 82 Resp 15 17 B/P (MAP) 164/91 (115) 148/84 Pulse Ox 99 O2 Delivery Room Air Room Air Departure Communication (PCP) Reviewed previous ER visits, H&P, lab testing. No known medical problems. De nies history of ACS. Concern for elevated blood pressure at home which she states was 120/100. Blood pressure was slightly hypertensive 164/91 on arrival. Patient reports occipital head pain, neck pain. No current pain at this time. Pain appears to be intermittent. No history of migraines. She has no focal neural deficits, facial droop, visual loss, unilateral weakness. She reports bilateral blurry vision over the past 2 weeks. Due to the new onset headache, blurry vision CT scan of the head was ordered. Differential diagnosis of malignant hypertension, kidney disease, brain lesion, kidney disease, stroke. CBC, CMP was ordered. CT scan of the head was negative for acute abnormality. CBC, CMP grossly unremarkable. She refused anything for head pain as she was currently asymptomatic. Her blood pressure did improve to 137/71. She was concerned for nosebleed yesterday that but that improved fairly quick. No active bleeding at this time. Neuro exam unremarkable. No evidence suggesting endorgan damage. She has no chest pain, shortness of breath or cough suggesting cardiac or pulmonary work-up. Recommend outpatient follow-up with her primary care physician for recheck of her blood pressure in the next 2 or 3 days. Recommend a further exam of her eyes. Provided Kancarr follow up. Urinalysis was negative for infection. She is afebrile. No meningeal signs. No recent i nfection suggesting infection etiology. She does not appear toxic or septic. No neurological red flag findings suggesting furthure imaging at this time. stable gait. No vertigo. Outpatient follow-up. If any worsening symptoms return back to ED Impression Primary Impression: Headache Disposition: 01 HOME, SELF-CARE Condition: Stable Departure-Patient Inst. Decision time for Depature: 14:57 Referrals: THOMPSON ZIMMERMAN MD (PCP/Family) Primary Care Physician Patient Instructions: Headache, Adult Add. Discharge Instructions: Recommend taking Tylenol or ibuprofen for head pain. Recommend follow-up your PCP in 2 to 3 days for reevaluation of blood pressure. If increasing head pain, unilateral muscle weakness or sensory changes, facial droop, vomiting to return back to ED All discharge instructions reviewed with patient and/or family. Voiced understanding. KARLOS SOOD April 07, 2023 13:31
[2023-04-07 13:39] LABS: BASOPHILS % (AUTO) 0 % (0-10); EOSINOPHILS # (AUTO) 0.1 10^3/uL (0.0-0.3); EOSINOPHILS % (AUTO) 2 % (0-10); HEMATOCRIT 43 % (35-52); HEMOGLOBIN 14.5 g/dL (11.5-16.0); LYMPHOCYTES # (AUTO) 1.8 10^3/uL (1.0-4.0); LYMPHOCYTES % (AUTO) 26 % (12-44); MEAN CORPUSCULAR HEMOGLOBIN 29 pg (25-34); MEAN CORPUSCULAR HGB CONC 33 g/dL (32-36); MEAN CORPUSCULAR VOLUME 88 fL (80-99); MEAN PLATELET VOLUME 9.5 fL (9.0-12.2); MONOCYTES # (AUTO) 0.4 10^3/uL (0.0-1.0); MONOCYTES % (AUTO) 5 % (0-12); NEUTROPHILS # (AUTO) 4.6 10^3/uL (1.8-7.8); NEUTROPHILS % (AUTO) 67 % (42-75); PLATELET COUNT 245 10^3/uL (130-400); WHITE BLOOD COUNT 6.9 10^3/uL (4.3-11.0)
[2023-04-07 13:49] LABS: ALBUMIN 4.7 GM/DL (3.2-4.5); CHLORIDE 107 MMOL/L (98-107); POTASSIUM 3.8 MMOL/L (3.6-5.0); SODIUM 142 MMOL/L (135-145)
[2023-04-07 13:50] LABS: CALCIUM 9.7 MG/DL (8.5-10.1)
[2023-04-07 13:51] LABS: GLUCOSE 98 MG/DL (70-105)
[2023-04-07 13:52] LABS: TOTAL PROTEIN 7.8 GM/DL (6.4-8.2)
--- NOTE | 2023-04-07 13:52 | Diagnostic Imaging Report ---
PROCEDURE: CT head without contrast. TECHNIQUE: Multiple contiguous axial images were obtained through the brain without the use of intravenous contrast. Auto Exposure Controls were utilized during the CT exam to meet ALARA standards for radiation dose reduction. INDICATION: Headaches. COMPARISON: 04/28/2014. FINDINGS: CT of the head demonstrates no evidence of an acute intracranial abnormality. There is no evidence of intracranial hemorrhage. There is no extra-axial fluid collection, mass effect or shift. Arthur and white matter differentiation appear preserved. There is no abnormal hypodensity within the basal ganglia. The ventricles are appropriate in size and configuration. There is no evidence of hydrocephalus. The basilar cisterns are patent. The posterior fossa is unremarkable. Mastoids and visualized paranasal sinuses appear clear. Orbital contents are unremarkable. There is no calvarial abnormality. IMPRESSION: 1. No CT evidence of an acute intracranial abnormality. Dictated by: Dictated on workstation # [id number]
[2023-04-07 13:53] LABS: BILIRUBIN,TOTAL 0.7 MG/DL (0.1-1.0); CARBON DIOXIDE 25 MMOL/L (21-32)
[2023-04-07 13:55] LABS: ALKALINE PHOSPHATASE 81 U/L (40-136); CREATININE SERUM 0.83 MG/DL (0.60-1.30); GFR ESTIMATED 86
[2023-04-07 13:56] LABS: BUN/CREATININE RATIO 18
[2023-04-07 13:58] LABS: ALANINE AMINOTRANSFERASE 24 U/L (0-55)
[2023-04-07 14:09] LABS: BILIRUBIN,URINE NEGATIVE (NEGATIVE); CLARITY,URINE CLEAR; COLOR,URINE YELLOW; GLUCOSE, URINE (UA) NEGATIVE (NEGATIVE); KETONES,URINE NEGATIVE (NEGATIVE); LEUKOCYTE ESTERASE ,URINE NEGATIVE (NEGATIVE); NITRITE,URINE NEGATIVE (NEGATIVE); PH,URINE 6.5 (5-9); PROTEIN,URINE NEGATIVE (NEGATIVE)
[2023-04-07 14:44] LABS: BACTERIA,URINE NEGATIVE /HPF; SQUAMOUS EPITHELIAL CELL,UR 0-2 /HPF; WBC,URINE RARE /HPF
[2023-04-07 15:08] VITALS: BP 148/84
== END 2023-04-07 15:08 | disposition home or self-care (01) ==
LOC: EDUNIT# 13:13 → ER 13:15
DX: R51.9 Headache, unspecified (principal); H53.8 Other visual disturbances; F20.9 Schizophrenia, unspecified; Z79.899 Other long term (current) drug therapy
CPT/HCPCS: 36415; 70450; 80053; 81000; 85025

== ENCOUNTER 2023-04-18 14:37 | Emergency (ER) | payer BC ==
[~2023-04-18] VITALS: Ht 167 cm; Wt 55.0 kg
--- NOTE | 2023-04-18 15:31 | ED General ---
General Chief Complaint: Dizziness/Syncope Stated Complaint: DIZZINESS | LIGHTHEADED Nursing Triage Note: PT AMB TO RM 6 PT CO OF DIZZINESS AND HTN FOR APPROX 30 MIN. STATES B/P ELEVATED. Source of Information: Patient Exam Limitations: No Limitations History of Present Illness Date Seen by Provider: Apr 18, 2023 Time Seen by Provider: 15:17 Initial Comments This 47 year old woman presents to the ER by private vehicle after having a dizz y episode and near syncope at work shortly prior to arrival. 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 She was standing at the time of the incident. She notes her BP on site after the incident was 169/99. On arrival to the ER her BP is 133/62. There was not LOC. Denies chest pain, SOA, or palpitations. Had some chills without fever about 3 days ago. Otherwise feels well. Dr. Dodge is her PCP. Allergies and Home Medications Allergies Coded Allergies: No Known Drug Allergies (Unverified , 01/11/22) Patient Home Medication List Home Medication List Reviewed: Yes Aripiprazole (Abilify) 10 Mg Tablet, 10 MG PO DAILY, (Reported) Entered as Reported by: TYLER GOLDSMITH on 09/19/18 1238 Hydrocodone/Acetaminophen (Hydrocodone-Acetamin 7.5-325) 1 Each Tablet, 1 EACH PO Q4H Prescribed by: JODY HAY on 01/11/22 1133 Review of Systems Review of Systems Constitutional: see HPI EENTM: no symptoms reported Respiratory: no symptoms reported Cardiovascular: see HPI Gastrointestinal: no symptoms reported Genitourinary: no symptoms reported Musculoskeletal: no symptoms reported Skin: no symptoms reported Psychiatric/Neurological: See HPI Hematologic/Lymphatic: No Symptoms Reported Immunological/Allergic: no symptoms reported Past Veenulc-Xvmatx-Myircd Hx Patient Social History Tobacco Use?: No Substance use?: No Alcohol Use?: No Pt feels they are or have been: No Immunizations Up To Date First/Initial COVID19 Vaccinat: 2020 Second COVID19 Vaccination Josep: 2020 Third COVID19 Vaccination Date: 2021 Seasonal Allergies Seasonal Allergies: No Past Medical History Surgeries: Yes (SKIN TAG IN RECTUM, anal fissure repair) Respiratory: No Cardiac: Yes Coronary Artery Disease (No record of CAD evidence found in chart) Neurological: No Reproductive Disorders: No Genitourinary: No Gastrointestinal: Yes (History of rectal pain and bleeding, RECTAL SKIN TAG 2020) Musculoskeletal: No Endocrine: No HEENT: No Cancer: No Psychosocial: Yes Schizophrenia Integumentary: Yes (SKIN TAG IN RECTUM) Blood Disorders: No Family Medical History Patient reports no known family medical history. Physical Exam Vital Signs Vital Signs - First Documented 04/18/23 04/18/23 14:45 18:13 Temp 36.4 Pulse 72 Resp 16 B/P (MAP) 159/76 (103) Pulse Ox 98 O2 Delivery Room Air Capillary Refill : Less Than 3 Seconds Height, Weight, BMI Height: 5'6.00" Weight: 126lbs. 0.0oz. 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 Skin: Normal Color, Warm/Dry Progress/Results/Core Measures Suspected Sepsis SIRS Temperature: Pulse: 72 Respiratory Rate: 16 Laboratory Tests 04/18/23 16:11: White Blood Count 6.1 Blood Pressure 159 /76 Mean: 103 Laboratory Tests 04/18/23 16:11: Creatinine 0.77, Platelet Count 265 Results/Orders Lab Results Laboratory Tests Test 04/18/23 15:41 04/18/23 16:11 Range/Units Urine Color YELLOW Urine Clarity SL CLOUDY Urine pH 6.0 5-9 Urine Specific [place] 1.010 L 1.016-1.022 Urine Protein NEGATIVE NEGATIVE Urine Glucose (UA) NEGATIVE NEGATIVE Urine Ketones NEGATIVE NEGATIVE Urine Nitrite NEGATIVE NEGATIVE Urine Bilirubin NEGATIVE NEGATIVE Urine Urobilinogen 0.2 < = 1.0 MG/DL Urine Leukocyte Esterase NEGATIVE NEGATIVE Urine RBC (Auto) 1+ H NEGATIVE Urine RBC 5-10 H /HPF Urine WBC 0-2 /HPF Urine Squamous Epithelial Cells 0-2 /HPF Urine Crystals NONE /LPF Urine Bacteria NEGATIVE /HPF Urine Casts NONE /LPF Urine Mucus NEGATIVE /LPF Urine Culture Indicated NO White Blood Count 6.1 4.3-11.0 10^3/uL Red Blood Count 4.49 3.80-5.11 10^6/uL Hemoglobin 13.0 11.5-16.0 g/dL Hematocrit 40 35-52 % Mean Corpuscular Volume 88 80-99 fL Mean Corpuscular Hemoglobin 29 25-34 pg Mean Corpuscular Hemoglobin Concent 33 32-36 g/dL Red Cell Distribution Width 11.9 10.0-14.5 % Platelet Count 265 130-400 10^3/uL Mean Platelet Volume 9.0 9.0-12.2 fL Sodium Level 141 135-145 MMOL/L Potassium Level 3.9 3.6-5.0 MMOL/L Chloride Level 107 98-107 MMOL/L Carbon Dioxide Level 29 21-32 MMOL/L Anion Gap 5 5-14 MMOL/L Blood Urea Nitrogen 13 7-18 MG/DL Creatinine 0.77 0.60-1.30 MG/DL Estimat Glomerular Filtration Rate 95 BUN/Creatinine Ratio 17 Glucose Level 90 70-105 MG/DL Calcium Level 9.5 8.5-10.1 MG/DL Magnesium Level 2.3 1.6-2.4 MG/DL My Orders Orders - ALVERTO MUSTAFA MD Basic Metabolic Panel (04/18/23 15:29) Cbc No Diff (04/18/23 15:29) Magnesium (04/18/23 15:29) Ua Culture If Indicated (04/18/23 15:29) Ed Iv/Invasive Line Start (04/18/23 15:29) Ekg Tracing (04/18/23 15:29) Monitor-Rhythm Ecg Trace Only (04/18/23 15:29) Orthostatic Vital Signs (Adult (04/18/23 15:29) Lactated Ringers (Lr 1000 Ml Iv Solution (04/18/23 16:45) Medications Given in ED Vital Signs/I&O 04/18/23 04/18/23 04/18/23 14:45 15:55 18:13 Temp 36.4 Pulse 72 61 60 65 100 Resp 16 17 B/P (MAP) 159/76 (103) 141/66 (91) 156/73 143/76 (98) 142/78 (99) Pulse Ox 98 98 O2 Delivery Room Air Capillary Refill : Less Than 3 Seconds Blood Pressure Mean: 103 Progress Note : Progress Note Symptoms resolved. Hypertension noted in ED was minimal and did not require treatment. ECG was interpreted by me to be unremarkable. Labs including BMP, CBC and magnesium were unremarkable by my interpretation. Orthostatic BP measurements were negative for orthostatic hypotension. She received a liter of LR and was discharged in stable condition. ECG Initial ECG Impression Date: Apr 18, 2023 Initial ECG Impression Time: 15:47 Initial ECG Rate: 60 Initial ECG Rhythm: Normal Sinus Initial ECG Intervals: Normal Initial ECG Impression: Normal Comment Normal sinus rhythm with no ST elevation or depression. No abnormal intervals or axis deviation. Departure Impression Primary Impression: Dizziness Disposition: 01 HOME, SELF-CARE Condition: Improved Departure-Patient Inst. Decision time for Depature: 18:11 Referrals: THOMPSON DODGE MD (PCP/Family) Primary Care Physician Patient Instructions: Dizziness, Adult ED Add. Discharge Instructions: Keep your follow-up appointment with Dr. Dodge. Have your blood pressure checked at that follow-up appointment and discuss your blood pressure with her. Drink plenty of clear liquids to stay well-hydrated. Return to the emergency room if you have worsening symptoms. All discharge instructions reviewed with patient and/or family. Voiced understanding. Work/School Note: Work Release Form Date Seen in the Emergency Department: Apr 18, 2023 Return to Work: Apr 20, 2023 Restrictions: No Restrictions Copy Copies To 1: THOMPSON DODGE MD, JOSHUA T MD Apr 18, 2023 15:31
[2023-04-18 15:46] LABS: BILIRUBIN,URINE NEGATIVE (NEGATIVE); CLARITY,URINE SL CLOUDY; COLOR,URINE YELLOW; GLUCOSE, URINE (UA) NEGATIVE (NEGATIVE); KETONES,URINE NEGATIVE (NEGATIVE); LEUKOCYTE ESTERASE ,URINE NEGATIVE (NEGATIVE); NITRITE,URINE NEGATIVE (NEGATIVE); PROTEIN,URINE NEGATIVE (NEGATIVE)
[2023-04-18 15:55] VITALS: BP_SYST 141; BP_SYST 142; BP_SYST 143; BP_DIAS 66; BP_DIAS 76; BP_DIAS 78
[2023-04-18 16:02] LABS: BACTERIA,URINE NEGATIVE /HPF; SQUAMOUS EPITHELIAL CELL,UR 0-2 /HPF; WBC,URINE 0-2 /HPF
[2023-04-18 16:14] LABS: HEMATOCRIT 40 % (35-52); MEAN CORPUSCULAR HEMOGLOBIN 29 pg (25-34); MEAN CORPUSCULAR HGB CONC 33 g/dL (32-36); MEAN CORPUSCULAR VOLUME 88 fL (80-99); PLATELET COUNT 265 10^3/uL (130-400); WHITE BLOOD COUNT 6.1 10^3/uL (4.3-11.0)
[2023-04-18 16:35] LABS: POTASSIUM 3.9 MMOL/L (3.6-5.0)
[2023-04-18 16:37] LABS: CALCIUM 9.5 MG/DL (8.5-10.1)
[2023-04-18 16:41] LABS: CREATININE SERUM 0.77 MG/DL (0.60-1.30)
[2023-04-18 16:43] LABS: MAGNESIUM 2.3 MG/DL (1.6-2.4)
[2023-04-18] MEDS ORDERED: LACTATED RINGERS 1,000 ML IV ONE (16:45)
[2023-04-18 18:13] VITALS: BP 156/73
== END 2023-04-18 18:16 | disposition home or self-care (01) ==
LOC: EDUNIT# 14:37 → ER 14:39
DX: R42 Dizziness and giddiness (principal); R03.0 Elevated blood-pressure reading, without diagnosis of hypertension
CPT/HCPCS: 36415; 80048; 81000; 83735; 85027; 93005; 93041